=== PATIENT | male | born 1950 | race Caucasian/White ===

== ENCOUNTER 2018-05-24 20:47 | Inpatient (IN) | payer MEDICARE ==
--- NOTE | 2018-05-24 21:05 | ED Physician Chart ---
ED Chief Complaint/HPI - Patient Information Date Seen:: 05/24/18 Time Seen:: 20:55 Chief Complaint:: increased agitation History of Present Illness:: Patient has been exhibiting increased agitation at his extended care facility. The EMT patient is normally alert and oriented 1 only Historian:: EMS Review:: Transfer documents Reviewed ED Review of Systems - Review of Systems General/Constitutional: No fever, No chills Skin: No skin lesions Head: No headache Eyes: No loss of vision ENT: No earache Neck: No neck pain, No swelling Cardio Vascular: No chest pain Pulmonary: No SOB GI: No nausea, No vomiting, No diarrhea G/U: No dysuria Musculoskeletal: No bone or joint pain, No back pain, No muscle pain Endocrine: No polyuria, No polydipsia Psychiatric: Prior psych history Hematopoietic: No bruising Allergic/Immuno: No urticaria ED Past Medical History - Past Medical History Past Medical History: DM, Other (schizophrenia) Family History: Other (not available) Social History: Care Facility Surgical History: other (enucleation left eye) Psychiatricy History: Schizophrenia Family Medical History - Family Member Mother History Unknown: Yes ED Physical Exam - Physical Examination General/Constitutional: Well-developed, well-nourished, Alert, No distress Other Gen/Cons comments:: No verbal response Head: Atraumatic Other Head comments:: Left eye enucleation Skin: Nl inspection, No rash ENMT: External ears, nose nl, TM canals nl Neck: No nuchal rigidity Respiratory: Nl effort/Exclusion, Clear to Auscultation Other Cardio Vascular comments:: S1 and S2 faint; pulse regular GI: No tenderness/rebounding/guarding, No organomegaly, No hernia, Normal BS's Neuro/Psych: No focal deficits ED Labs/Radiology/EKG Results - Lab Results Results: Abnormal Lab Results 05/24/18 21:35 WBC 5.7 RBC 3.73 L Hgb 10.5 L Hct 32.6 L MCV 87.5 MCH 28.1 MCHC Differential 32.1 RDW 13.1 Plt Count 253 MPV 8.2 Neutrophils % 53.9 Lymphocytes % 36.7 Monocytes % 6.1 Eosinophils % 2.4 Basophils % 0.9 Abnormal Lab Results 05/24/18 05/24/18 21:35 21:35 WBC 5.7 RBC 3.73 L Hgb 10.5 L Hct 32.6 L MCV 87.5 MCH 28.1 MCHC Differential 32.1 RDW 13.1 Plt Count 253 MPV 8.2 Neutrophils % 53.9 Lymphocytes % 36.7 Monocytes % 6.1 Eosinophils % 2.4 Basophils % 0.9 Sodium 136 Potassium 4.5 Chloride 106 Carbon Dioxide 22.1 Anion Gap 12.4 BUN 21 Creatinine 1.3 Est GFR ( Amer) > 60.0 Est GFR (Non-Af Amer) 58.3 BUN/Creatinine Ratio 16.2 Glucose 103 Calcium 9.8 Total Bilirubin 0.3 AST 11 L ALT 9 Alkaline Phosphatase 78 Total Protein 6.5 Albumin 3.4 L Globulin 3.1 Albumin/Globulin Ratio 1.1 Triglycerides 131 Cholesterol 140 LDL Cholesterol Direct 84 HDL Cholesterol 36 - EKG Interpretations Rate & Rhythm: normal sinus rhythm with a rate of 58 [place]: normal axis ED Septic Shock - . Is Septic Shock (SBP<90, OR Lactate>4 mmol\L) present?: No ED Reassessment (Disposition) - Reassessment Reassessment Condition:: Unchanged - Diagnosis Diagnosis:: Anemia; agitation; schizophrenia; dementia; status post enucleation left eye - Patient Disposition Admitted to:: [facility] Condition at Disposition:: Stable, Unchanged
[2018-05-24 21:47] LABS: % BASOPHILS 0.9 % (0.0-2.0); % EOSINOPHILS 2.4 % (0.0-5.0); % LYMPHOCYTES 36.7 % (20.0-50.0); % MONOCYTES 6.1 % (2.0-10.0); % NEUTROPHILS 53.9 % (40.0-80.0); BASOPHILE ABSOLUTE 0.1 Th/cumm (0-0.2); EOSINOPHILE ABSOLUTE 0.1 Th/cmm (0.1-0.4); HEMATOCRIT 32.6 % (41.0-60); HEMOGLOBIN 10.5 gm/dL (12-16); LYMPHOCYTE ABSOLUTE 2.1 Th/cmm (1.5-3.0); MEAN CELL VOLUME 87.5 fl (80-99); MEAN CORPUSCULAR HEMOGLOBIN 28.1 pg (27.0-31.0); MEAN CORPUSCULAR HGB CONC 32.1 pg (28.0-36.0); MEAN PLATELET VOLUME 8.2 fl; MONOCYTE ABSOLUTE 0.3 Th/cmm (0.3-1.0); NEUTROPHILE ABSOLUTE 3.1 Th/cmm (1.8-8.0); PLATELET COUNT 253 Th/cmm (150-400); RED BLOOD COUNT 3.73 Mil/cmm (3.80-5.80); RED CELL DISTRIBUTION WIDTH 13.1 % (11.5-20.0); WHITE BLOOD COUNT 5.7 Th/cmm (4.8-10.8)
[2018-05-24 22:05] LABS: ALB/GLOB RATIO 1.1 (1.0-1.8); ALBUMIN 3.4 gm/dL (4.2-5.5); ALKALINE PHOSPHATASE 78 U/L (34-104); ANION GAP 12.4 (7.0-16.0); BILIRUBIN,TOTAL 0.3 mg/dL (0.3-1.0); BUN - UREA NITROGEN 21 mg/dL (7-25); CALCIUM SERUM 9.8 mg/dL (8.6-10.3); CARBON DIOXIDE 22.1 mEq/L (21.0-31.0); CHLORIDE 106 mEq/L (98-107); CHOLESTEROL 140 mg/dL (<200); CREATININE - SERUM 1.3 mg/dL (0.7-1.3); GFR AFRICAN-AMERICAN > 60.0 ml/min (>90); GFR NON AFRICAN-AMERICAN 58.3 ml/min; GLUCOSE 103 mg/dL (70-105); HDL -HIGH DENSITY LIPOPROTEIN 36 mg/dL (23-92); POTASSIUM SERUM 4.5 mEq/L (3.5-5.1); SGOT 11 U/L (13-39); SGPT/ALT 9 U/L (7-52); SODIUM SERUM 136 mEq/L (136-145); TOTAL PROTEIN,SERUM 6.5 gm/dL (6.0-8.3); TRIGLYCERIDES 131 mg/dL (<150)
[2018-05-24] MEDS ORDERED: Magnesium Hydroxide (MOM) 30 mL UDC PO PRN (22:45)
[2018-05-25 00:57] VITALS: BP 105/54
[2018-05-25 01:31] LABS: URINE SOURCE CLEAN C
[2018-05-25 01:34] LABS: URINE BILIRUBIN NEGATIVE (NEGATIVE); URINE BLOOD NEGATIVE (NEGATIVE); URINE GLUCOSE (UA) NEGATIVE (NEGATIVE); URINE KETONE NEGATIVE (NEGATIVE); URINE LEUKOCYTE ESTERASE NEGATIVE (NEGATIVE); URINE NITRATE NEGATIVE (NEGATIVE); URINE PROTEIN NEGATIVE (NEGATIVE); URINE UROBILINOGEN 0.2 E.U./dL (0.2 - 1.0)
[2018-05-25 01:40] LABS: URINE CLARITY CLEAR (CLEAR); URINE COLOR YELLOW
[2018-05-25 01:41] LABS: URINE MICROSCOPIC INDICATED? NO
[2018-05-25] MEDS: INSULIN ASPART SLIDING SCALE 100 UNITS/ML UNIT SUBQ SCH ×2 (08:00→11:30)
[2018-05-25] MEDS: INSULIN ASPART, RECOMBINANT 100 UNITS/ML SUBQ SCH ×3 (08:00→16:52)
[2018-05-25] MEDS ORDERED: Non-Formulary Item 1 EA (Glipizide [Glipizide] 10 MG) PO SCH (09:00)
[2018-05-25] MEDS ORDERED: Multivitamin w/ Minerals Tab PO SCH (09:00)
[2018-05-25] MEDS: Ferrous Sulfate 325 MG TAB PO SCH (09:46)
[2018-05-25] MEDS ORDERED: Magnesium Hydroxide (MOM) 30 mL UDC PO PRN (15:44)
--- NOTE | 2018-05-25 16:29 | History & Physical ---
ADMIT DATE: 05/25/2018 CHIEF COMPLAINT: Medical evaluation and clearance. HISTORY OF PRESENT ILLNESS: This is a 68-year-old male with history of diabetes, left eye blindness, dementia, hypertension, admitted from nursing facility secondary to above complaints. The patient denied any chest pain, shortness of breath. The patient is not a best historian. PAST MEDICAL HISTORY: As mentioned in history present illness. PAST SURGICAL HISTORY: Left eye surgery and ear surgery. ALLERGIES: No known drug allergies. MEDICATIONS: Cogentin, Colace, iron, sulfa, glipizide, lisinopril, ____. FAMILY HISTORY: Noncontributory. SOCIAL HISTORY: The patient is a shelter patient, requiring 24-hour total care. REVIEW OF SYSTEMS: This is limited due to the patient's current mental status state. We will try to obtain more detailed review of system at a later date by talking to family members and Estela the sister, . There is a daughter, Lena Muse, . We will also try to get information from nursing staff at [facility] at [phone] as well as from Dr. Hyatt. PHYSICAL EXAMINATION: VITAL SIGNS: Blood pressure 133/63, respirations 20, pulse 67. GENERAL: Elderly male, appears stated age ____. NECK: Supple. No mass. LUNGS: Equal breath sounds, otherwise clear to auscultation. HEART: Regular rate and rhythm without appreciable murmur. ABDOMEN: Soft, nontender. EXTREMITIES: No clubbing, cyanosis or edema. LABORATORY DATA: WBC 5, hemoglobin 10.5, platelets 253. Sodium 136, potassium 4.5, BUN 21, creatinine 1.3, albumin 3.4. UA is negative. ASSESSMENT AND PLAN: Anemia, diabetes, left eye blindness, dementia, hypertension, low albumin. We will continue the patient on daily insulin sliding scale. Continue ____ medication. We will monitor the patient with hematocrit. We will titrate antihypertensive medication. Continue with current care. Follow consult and recommendations. JOB# [id number]
[2018-05-25] MEDS: Benztropine 1 MG TAB PO SCH (20:56)
[2018-05-25] MEDS ORDERED: Non-Formulary Item 1 EA (Melatonin [Melatonin] 3 MG) PO SCH (21:00)
[2018-05-25] MEDS ORDERED: Thioridazine Hydrochloride 25 MG TAB PO SCH (21:00)
--- NOTE | 2018-05-26 03:50 | Psychiatric Evaluation ---
DATE OF SERVICE: 05/25/2018 IDENTIFYING DATA: The patient is a 68-year-old male, resident of [facility]. Information obtained by directly interviewing the patient as well as reviewing the admission papers and they are reliable. JUSTIFICATION FOR HOSPITALIZATION: The patient is admitted on voluntary basis in view of his acute agitation and psychosis. CHIEF COMPLAINT: "I am okay." HISTORY OF PRESENT ILLNESS: This is the first psychiatric hospitalization to [facility] for this 68-year-old who is reported to have been getting easily agitated and has been out of control. The patient has to be referred over here for further stabilization. At the time of the hospitalization, the patient has been on thioridazine 75 mg at bedtime and the patient is also reported to have been on lithium 150 mg at bedtime. The patient's insight and judgment at this time are noted to be impaired. Impulse control is noted to be poor. The patient is actively responding to internal stimuli. The patient is pacing most of the time on the unit. The patient is laughing and giggling and talking to self. Coping skills at the time of the evaluation are noted to be very poor. PAST PSYCHIATRIC HISTORY: Details are not known. MEDICAL HISTORY: Physical examination is requested to be done by Dr. Go. SUBSTANCE ABUSE HISTORY: None. STRENGTH AND ASSETS: The patient is motivated. MENTAL STATUS EXAMINATION: The patient is a 68-year-old, looking his stated age, superficially cooperative. Eye contact is poor. Mood is noted to be irritable. Affect is constricted. Insight and judgment at this time are noted to be very much impaired. Impulse control is noted to be poor. Coping skills are also noted to be very poor. The patient is not making much sense. The patient is laughing and giggling and is not making much sense at this time and the patient has been having acute mood swings. Attention span and concentration are noted to be very poor at this time. DIAGNOSTIC IMPRESSION: AXIS I: Schizoaffective disorder. AXIS II: None. AXIS III: As per Dr. Go. IMMEDIATE TREATMENT PLAN: The patient is going to be observed on inpatient unit, provided with supportive psychotherapy. The patient is going to be closely monitored and encouraged to verbalize the concerns rather than to act out. The patient is going to be discontinued off the thioridazine and the patient is going to be placed on ____ Dictation ends here JOB# [id number]
--- NOTE | 2018-05-26 03:52 | Psychiatric Evaluation ---
DATE OF SERVICE: 05/24/2018 IDENTIFYING DATA: The patient is a 68-year-old male, resident of the [facility]. Information obtained by directly interviewing the patient as well as reviewing the admission papers. JUSTIFICATION OF HOSPITALIZATION: The patient is admitted here on a voluntary basis in view of his acute psychosis and agitation. CHIEF COMPLAINT: "I am okay." HISTORY OF PRESENT ILLNESS: This is the first psychiatric hospitalization to [facility] for this patient who is reported to have been diagnosed to have bipolar disorder and is reported to have been out of control. The patient has been screaming and yelling and getting easily agitated and hence the patient has been referred over here for stabilization. At the time of the hospitalization, the patient has been on thioridazine 75 mg at bedtime and also has been receiving the lithium carbonate 150 mg at bedtime. Even with these medications, the patient has been out of control. I tried to interview the patient, the patient is laughing and giggling and pacing most of the time on the unit. Sleep and appetite prior to the hospitalization are reported to be poor. PAST PSYCHIATRIC HISTORY: Details are not known. MEDICAL HISTORY: Physical examination is requested to be done by Dr. Go. SUBSTANCE ABUSE HISTORY: None. PHYSICAL OR SEXUAL ABUSE HISTORY: None. LEGAL PROBLEMS: None at this time. STRENGTH AND ASSETS: The patient is motivated. MENTAL STATUS EXAMINATION: The patient is a 68-year-old, looking his stated age, superficially cooperative. Eye contact is poor. The patient is grossly psychotic, actively responding to internal stimuli. The patient has paranoid delusions, but denies any command hallucinations. Insight and judgment are very much impaired. Impulse control is very poor. The patient, however, is noted to be alert and aware that he is in the hospital. Attention span and concentration are noted to be poor. The patient has been having acute mood swings and mood is noted to be very labile. The patient's behavior is likely danger to others. DIAGNOSTIC IMPRESSION: AXIS I: Schizoaffective disorder, psychotic type. AXIS II: None. AXIS III: As per Dr. Go. IMMEDIATE TREATMENT PLAN: The patient is going to be observed on inpatient unit, provided with supportive psychotherapy. The thioridazine is going to be discontinued. The patient is going to be placed on the Seroquel, which is going to be given at 25 mg at bedtime, lithium is going to be continued and the lisinopril possibly is going to be changed because the patient is on the lithium. ESTIMATED LENGTH OF STAY: 5-7 days. DISCHARGE CRITERIA: When he no longer a threat to self or others and be able to cope up with the stress. JOB# [id number]
[2018-05-26] MEDS: INSULIN ASPART, RECOMBINANT 100 UNITS/ML SUBQ SCH ×3 (06:48→16:46)
[2018-05-26] MEDS: Ferrous Sulfate 325 MG TAB PO SCH (08:56)
--- NOTE | 2018-05-26 14:32 | Internal Medicine Prog Note ---
Internal Medicine Subjective - Subjective Patient seen and examined:: with staff, chart reviewed Patient is:: awake, verbal, interactive Per staff patient has:: no adverse event, poor appetite, tolerating meds Internal Medicine Objective - Results Result Diagrams: 05/24/18 21:35 05/24/18 21:35 Recent Labs: Laboratory Last Values WBC 5.7 Th/cmm (4.8-10.8) 05/24/18 21:35 RBC 3.73 Mil/cmm (3.80-5.80) L 05/24/18 21:35 Hgb 10.5 gm/dL (12-16) L 05/24/18 21:35 Hct 32.6 % (41.0-60) L 05/24/18 21:35 MCV 87.5 fl (80-99) 05/24/18 21:35 MCH 28.1 pg (27.0-31.0) 05/24/18 21:35 MCHC Differential 32.1 pg (28.0-36.0) 05/24/18 21:35 RDW 13.1 % (11.5-20.0) 05/24/18 21:35 Plt Count 253 Th/cmm (150-400) 05/24/18 21:35 MPV 8.2 fl 05/24/18 21:35 Neutrophils % 53.9 % (40.0-80.0) 05/24/18 21:35 Lymphocytes % 36.7 % (20.0-50.0) 05/24/18 21:35 Monocytes % 6.1 % (2.0-10.0) 05/24/18 21:35 Eosinophils % 2.4 % (0.0-5.0) 05/24/18 21:35 Basophils % 0.9 % (0.0-2.0) 05/24/18 21:35 Sodium 136 mEq/L (136-145) 05/24/18 21:35 Potassium 4.5 mEq/L (3.5-5.1) 05/24/18 21:35 Chloride 106 mEq/L (98-107) 05/24/18 21:35 Carbon Dioxide 22.1 mEq/L (21.0-31.0) 05/24/18 21:35 Anion Gap 12.4 (7.0-16.0) 05/24/18 21:35 BUN 21 mg/dL (7-25) 05/24/18 21:35 Creatinine 1.3 mg/dL (0.7-1.3) 05/24/18 21:35 Est GFR ( Amer) > 60.0 ml/min (>90) 05/24/18 21:35 Est GFR (Non-Af Amer) 58.3 ml/min 05/24/18 21:35 BUN/Creatinine Ratio 16.2 05/24/18 21:35 Glucose 103 mg/dL (70-105) 05/24/18 21:35 Calcium 9.8 mg/dL (8.6-10.3) 05/24/18 21:35 Total Bilirubin 0.3 mg/dL (0.3-1.0) 05/24/18 21:35 AST 11 U/L (13-39) L 05/24/18 21:35 ALT 9 U/L (7-52) 05/24/18 21:35 Alkaline Phosphatase 78 U/L (34-104) 05/24/18 21:35 Total Protein 6.5 gm/dL (6.0-8.3) 05/24/18 21:35 Albumin 3.4 gm/dL (4.2-5.5) L 05/24/18 21:35 Globulin 3.1 gm/dL 05/24/18 21:35 Albumin/Globulin Ratio 1.1 (1.0-1.8) 05/24/18 21:35 Triglycerides 131 mg/dL (<150) 05/24/18 21:35 Cholesterol 140 mg/dL (<200) 05/24/18 21:35 LDL Cholesterol Direct 84 mg/dL (75-193) 05/24/18 21:35 HDL Cholesterol 36 mg/dL (23-92) 05/24/18 21:35 TSH 0.10 uIU/ml (0.34-5.60) L 05/24/18 21:35 Urine Source CLEAN C 05/24/18 22:10 Urine Color YELLOW 05/24/18 22:10 Urine Clarity CLEAR (CLEAR) 05/24/18 22:10 Urine pH 7.0 (4.6 - 8.0) 05/24/18 22:10 Ur Specific [place] <= 1.005 (1.005-1.030) 05/24/18 22:10 Urine Protein NEGATIVE mg/dL (NEGATIVE) 05/24/18 22:10 Urine Glucose (UA) NEGATIVE mg/dL (NEGATIVE) 05/24/18 22:10 Urine Ketones NEGATIVE mg/dL (NEGATIVE) 05/24/18 22:10 Urine Blood NEGATIVE (NEGATIVE) 05/24/18 22:10 Urine Nitrate NEGATIVE (NEGATIVE) 05/24/18 22:10 Urine Bilirubin NEGATIVE (NEGATIVE) 05/24/18 22:10 Urine Urobilinogen 0.2 E.U./dL (0.2 - 1.0) 05/24/18 22:10 Ur Leukocyte Esterase NEGATIVE (NEGATIVE) 05/24/18 22:10 RPR NONREACTIVE (NONREACTIVE) 05/24/18 21:35 Crossmatch See Detail 05/24/18 21:35 - Physical Exam Vitals and I&O: Vital Signs Temp 96.1 F 05/26/18 05:48 Pulse 60 05/26/18 08:55 Resp 20 05/26/18 05:48 BP 99/52 05/26/18 08:55 Pulse Ox 99 05/26/18 05:48 Intake & Output 05/25/18 05/26/18 05/26/18 18:59 06:59 18:59 Intake Total 240 Balance 240 Intake: Oral 240 Other: # Voids 2 # Bowel Movements 1 Active Medications: Current Medications Acetaminophen (Tylenol) 650 mg PO Q4H PRN PRN Reason: Pain or Fever >101 Stop: 07/24/18 03:09 Benztropine Mesylate (Cogentin) 1 mg PO HS [facility] Stop: 07/24/18 20:59 Last Admin: 05/25/18 20:56 Dose: 1 mg Docusate Sodium (Colace) 100 mg PO BID [facility] Stop: 07/24/18 08:59 Last Admin: 05/26/18 08:56 Dose: 100 mg Donepezil HCl (Aricept) 5 mg PO HS [facility] Stop: 07/24/18 20:59 Last Admin: 05/25/18 20:56 Dose: 5 mg Ferrous Sulfate (Iron) 325 mg PO DAILY [facility] Stop: 07/24/18 08:59 Last Admin: 05/26/18 08:56 Dose: 325 mg Glipizide (Glucotrol) 10 mg PO BIDBRS [facility] Stop: 07/24/18 07:59 Last Admin: 05/26/18 08:56 Dose: 10 mg Insulin Aspart (Novolog) 0 units SUBQ AC [facility]; Protocol Stop: 07/24/18 07:29 Last Admin: 05/26/18 11:34 Dose: Not Given Lisinopril (Zestril) 5 mg PO DAILY [facility] Stop: 07/24/18 08:59 Last Admin: 05/26/18 08:55 Dose: 5 mg [place] Carbonate (Eskalith) 150 mg PO HS [facility]; Protocol Stop: 07/24/18 20:59 Last Admin: 05/25/18 20:56 Dose: 150 mg Lorazepam (Ativan) 0.5 mg PO Q4HR PRN; Protocol PRN Reason: Anxiety Stop: 06/23/18 22:44 Magnesium Hydroxide (Milk Of Magnesia) 30 ml PO HS PRN PRN Reason: Constipation Magnesium Hydroxide (Milk Of Magnesia) 30 ml PO DAILY PRN PRN Reason: Constipation Stop: 07/24/18 15:43 Quetiapine Fumarate (Seroquel) 25 mg PO HS [facility]; Protocol Stop: 07/24/18 20:59 Last Admin: 05/25/18 20:56 Dose: 25 mg Zolpidem Tartrate (Ambien) 5 mg PO HS PRN PRN Reason: Insomnia Stop: 07/23/18 22:44 Last Admin: 05/25/18 20:56 Dose: 5 mg General: demented HEENT: NC/AT, PERRLA Neck: Supple, No JVD Lungs: CTAB Cardiovascular: RRR, Normal S1, Normal S2 Abdomen: soft, non-tender, non-distended Extremities: excoriation Neurological: no change, disorganized Internal Medicine Assmt/Plan - Assessment Assessment: ASSESSMENT AND PLAN: Anemia, diabetes, left eye blindness, dementia, hypertension, low albumin. - Plan Plan: PLAN: We will continue the patient on daily insulin sliding scale. Continue _hypoglycemic___ medication. We will monitor the patient with low na diet We will titrate antihypertensive medication. Continue with current care. Follow consult and recommendations.
[2018-05-26] MEDS: Benztropine 1 MG TAB PO SCH (20:41)
--- NOTE | 2018-05-26 23:53 | Progress Notes ---
DATE: 05/26/2018 PSYCHIATRIC PROGRESS NOTE SUBJECTIVE: Staff was spoken to. The patient is interviewed. The patient's sister has been spoken to at length, sister has been mentioning that the patient has been doing fairly well on the [place] and she does not want that medication to be stopped and the patient was supposed to be tried on Risperdal that did not go well. The patient also has been having ____ kidney and the lithium is supposed to be taken off. The patient at this time is actively responding to internal stimuli, not making much sense. The patient is pacing most of the time. ASSESSMENT: The patient is still grossly psychotic. PLAN: To continue the patient with the supportive therapy. I encouraged the patient to verbalize the concerns rather than to act out. JOB# [id number]
[2018-05-27] MEDS: INSULIN ASPART, RECOMBINANT 100 UNITS/ML SUBQ SCH ×3 (06:40→17:04)
[2018-05-27] MEDS: Thioridazine Hydrochloride 25 MG TAB PO SCH ×2 (09:10→17:41)
[2018-05-27] MEDS: Ferrous Sulfate 325 MG TAB PO SCH (09:11)
--- NOTE | 2018-05-27 15:11 | Consultation ---
DATE OF CONSULTATION: 05/26/2018 REQUESTING PHYSICIAN: Roula Castellanos MD TYPE OF CONSULTATION: Psychology. HISTORY OF PRESENT ILLNESS: The patient is a 68-year-old male. The patient is a resident of [facility]. The following is by review of the medical record and by the patient's self-report. The patient is being admitted due to acute psychosis and agitation. Upon interview, the patient states that he thinks he is okay and does not need to be hospitalized. The staff at the patient's facility report that the patient's behavior has been out of control with screaming and yelling episodes. The staff reports that the patient had been getting easily agitated and was unredirectable. Therefore, the patient was admitted here for stabilization. The patient seems to be laughing inappropriately at the time of this clinical interview. The patient denied any suicidal ideation, plan or intention. PAST MEDICAL HISTORY: Please see history and physical by Dr. Go. PAST PSYCHIATRIC HISTORY: Records are unavailable, details are unknown. SUBSTANCE ABUSE HISTORY: The patient did not answer the questions about history of alcohol, tobacco or illicit drug use. PSYCHOSOCIAL HISTORY: The patient did not answer questions about occupational or educational history or catholic affiliation. The patient did not answer questions about history of physical or sexual abuse. The patient denied any current legal problems. The patient did not answer question about family members or family relationships or others involved in his care. MENTAL STATUS EXAMINATION: The patient appears to be his stated age. The patient's attitude is superficially cooperative. Eye contact is poor. Speech is loud and pressured. The patient appears to be responding to internal stimuli. There is evidence of paranoid delusions. The patient denied any auditory or visual hallucinations. The patient denied any suicidal ideation, plan or intention. The patient's behavior has been difficult to deescalate. Impulse control is impaired. Concentration is poor. The patient was unable to sustain focus and attention. The patient is experiencing mood swings and appears to be quite labile. The sensorium is alert and oriented to self and place only. The patient did not participate in the memory assessment. The patient did not participate in the interpretation of proverbs. Insight is impaired. Judgment is impaired. DIAGNOSTIC IMPRESSION: AXIS I: Schizoaffective disorder, bipolar type. AXIS II: Deferred. AXIS III: Per Dr. Donavan. TREATMENT PLAN: The patient has been seen by Dr. Castellanos for psychiatric evaluation and for the management of the patient's psychotropic medications. We will provide supportive psychotherapy to include reality orientation, differentiation and integration. We will provide de-escalation as well as limit setting. We will provide stress management for the patient to increase his frustration tolerance. We will encourage the patient to demonstrate emotional and self-regulation prior to his discharge. We will provide coping strategies for severe chronic mental illness. We will provide motivational enhancement for the patient to become compliant and stay compliant with all aspects of his care and treatment. The attending psychiatrist indicates that thioridazine is being discontinued and the patient is being placed on Seroquel. [place] is being continued, and is being reviewed. We will continue to provide supportive therapy throughout the patient's hospital stay. We will encourage the patient to also verbally contract for safety. Thank you, Dr. Castellanos for this consult and the opportunity to participate in this patient's care. [facility]# [id number] [email or web address]
--- NOTE | 2018-05-27 20:10 | Internal Medicine Prog Note ---
Internal Medicine Subjective - Subjective Patient seen and examined:: with staff, chart reviewed Patient is:: awake, verbal, interactive Per staff patient has:: no adverse event, poor appetite, tolerating meds Internal Medicine Objective - Results Result Diagrams: 05/24/18 21:35 05/24/18 21:35 Recent Labs: Laboratory Last Values WBC 5.7 Th/cmm (4.8-10.8) 05/24/18 21:35 RBC 3.73 Mil/cmm (3.80-5.80) L 05/24/18 21:35 Hgb 10.5 gm/dL (12-16) L 05/24/18 21:35 Hct 32.6 % (41.0-60) L 05/24/18 21:35 MCV 87.5 fl (80-99) 05/24/18 21:35 MCH 28.1 pg (27.0-31.0) 05/24/18 21:35 MCHC Differential 32.1 pg (28.0-36.0) 05/24/18 21:35 RDW 13.1 % (11.5-20.0) 05/24/18 21:35 Plt Count 253 Th/cmm (150-400) 05/24/18 21:35 MPV 8.2 fl 05/24/18 21:35 Neutrophils % 53.9 % (40.0-80.0) 05/24/18 21:35 Lymphocytes % 36.7 % (20.0-50.0) 05/24/18 21:35 Monocytes % 6.1 % (2.0-10.0) 05/24/18 21:35 Eosinophils % 2.4 % (0.0-5.0) 05/24/18 21:35 Basophils % 0.9 % (0.0-2.0) 05/24/18 21:35 Sodium 136 mEq/L (136-145) 05/24/18 21:35 Potassium 4.5 mEq/L (3.5-5.1) 05/24/18 21:35 Chloride 106 mEq/L (98-107) 05/24/18 21:35 Carbon Dioxide 22.1 mEq/L (21.0-31.0) 05/24/18 21:35 Anion Gap 12.4 (7.0-16.0) 05/24/18 21:35 BUN 21 mg/dL (7-25) 05/24/18 21:35 Creatinine 1.3 mg/dL (0.7-1.3) 05/24/18 21:35 Est GFR ( Amer) > 60.0 ml/min (>90) 05/24/18 21:35 Est GFR (Non-Af Amer) 58.3 ml/min 05/24/18 21:35 BUN/Creatinine Ratio 16.2 05/24/18 21:35 Glucose 103 mg/dL (70-105) 05/24/18 21:35 POC Glucose 116 MG/DL (70 - 105) H 05/27/18 16:49 Calcium 9.8 mg/dL (8.6-10.3) 05/24/18 21:35 Total Bilirubin 0.3 mg/dL (0.3-1.0) 05/24/18 21:35 AST 11 U/L (13-39) L 05/24/18 21:35 ALT 9 U/L (7-52) 05/24/18 21:35 Alkaline Phosphatase 78 U/L (34-104) 05/24/18 21:35 Total Protein 6.5 gm/dL (6.0-8.3) 05/24/18 21:35 Albumin 3.4 gm/dL (4.2-5.5) L 05/24/18 21:35 Globulin 3.1 gm/dL 05/24/18 21:35 Albumin/Globulin Ratio 1.1 (1.0-1.8) 05/24/18 21:35 Triglycerides 131 mg/dL (<150) 05/24/18 21:35 Cholesterol 140 mg/dL (<200) 05/24/18 21:35 LDL Cholesterol Direct 84 mg/dL (75-193) 05/24/18 21:35 HDL Cholesterol 36 mg/dL (23-92) 05/24/18 21:35 TSH 0.10 uIU/ml (0.34-5.60) L 05/24/18 21:35 Urine Source CLEAN C 05/24/18 22:10 Urine Color YELLOW 05/24/18 22:10 Urine Clarity CLEAR (CLEAR) 05/24/18 22:10 Urine pH 7.0 (4.6 - 8.0) 05/24/18 22:10 Ur Specific [place] <= 1.005 (1.005-1.030) 05/24/18 22:10 Urine Protein NEGATIVE mg/dL (NEGATIVE) 05/24/18 22:10 Urine Glucose (UA) NEGATIVE mg/dL (NEGATIVE) 05/24/18 22:10 Urine Ketones NEGATIVE mg/dL (NEGATIVE) 05/24/18 22:10 Urine Blood NEGATIVE (NEGATIVE) 05/24/18 22:10 Urine Nitrate NEGATIVE (NEGATIVE) 05/24/18 22:10 Urine Bilirubin NEGATIVE (NEGATIVE) 05/24/18 22:10 Urine Urobilinogen 0.2 E.U./dL (0.2 - 1.0) 05/24/18 22:10 Ur Leukocyte Esterase NEGATIVE (NEGATIVE) 05/24/18 22:10 RPR NONREACTIVE (NONREACTIVE) 05/24/18 21:35 Crossmatch See Detail 05/24/18 21:35 - Physical Exam Vitals and I&O: Vital Signs Temp 97 F 05/27/18 15:17 Pulse 68 05/27/18 15:17 Resp 18 05/27/18 15:17 BP 128/67 05/27/18 15:17 Pulse Ox 99 05/27/18 15:17 Intake & Output 05/27/18 05/27/18 05/28/18 06:59 18:59 06:59 Intake Total 120 Balance 120 Intake: Oral 120 Other: # Voids 3 # Bowel Movements 0 Active Medications: Current Medications Acetaminophen (Tylenol) 650 mg PO Q4H PRN PRN Reason: Pain or Fever >101 Stop: 07/24/18 03:09 Benztropine Mesylate (Cogentin) 1 mg PO [facility] Stop: 07/24/18 20:59 Last Admin: 05/26/18 20:41 Dose: 1 mg Divalproex Sodium (Depakote Dr) 125 mg PO Q12HR [facility]; Protocol Stop: 07/25/18 20:59 Last Admin: 05/27/18 09:10 Dose: 125 mg Docusate Sodium (Colace) 100 mg PO BID [facility] Stop: 07/24/18 08:59 Last Admin: 05/27/18 17:42 Dose: Not Given Donepezil HCl (Aricept) 5 mg PO [facility] Stop: 07/24/18 20:59 Last Admin: 05/26/18 20:41 Dose: 5 mg Ferrous Sulfate (Iron) 325 mg PO DAILY [facility] Stop: 07/24/18 08:59 Last Admin: 05/27/18 09:11 Dose: 325 mg Glipizide (Glucotrol) 10 mg PO BIDBRS [facility] Stop: 07/24/18 07:59 Last Admin: 05/27/18 17:42 Dose: 10 mg Insulin Aspart (Novolog) 0 units SUBQ AC [facility]; Protocol Stop: 07/24/18 07:29 Last Admin: 05/27/18 17:04 Dose: Not Given Lisinopril (Zestril) 5 mg PO DAILY [facility] Stop: 07/24/18 08:59 Last Admin: 05/27/18 09:11 Dose: 5 mg Lorazepam (Ativan) 0.5 mg PO Q4HR PRN; Protocol PRN Reason: Anxiety Stop: 06/23/18 22:44 Last Admin: 05/27/18 09:10 Dose: 0.5 mg Magnesium Hydroxide (Milk Of Magnesia) 30 ml PO HS PRN PRN Reason: Constipation Magnesium Hydroxide (Milk Of Magnesia) 30 ml PO DAILY PRN PRN Reason: Constipation Stop: 07/24/18 15:43 Mupirocin (Bactroban Oint) 1 appl NS BID [facility] Stop: 06/01/18 09:01 Last Admin: 05/27/18 17:42 Dose: Not Given Quetiapine Fumarate (Seroquel) 25 mg PO HS [facility]; Protocol Stop: 07/24/18 20:59 Last Admin: 05/26/18 20:42 Dose: 25 mg Thioridazine HCl (Mellaril) 50 mg PO BID [facility]; Protocol Stop: 07/26/18 08:59 Last Admin: 05/27/18 17:41 Dose: 50 mg Zolpidem Tartrate (Ambien) 5 mg PO HS PRN PRN Reason: Insomnia Stop: 07/23/18 22:44 Last Admin: 05/26/18 20:42 Dose: 5 mg General: demented HEENT: NC/AT, PERRLA Neck: Supple, No JVD Lungs: CTAB Cardiovascular: RRR, Normal S1, Normal S2 Abdomen: soft, non-tender, non-distended Extremities: excoriation Neurological: no change, disorganized Internal Medicine Assmt/Plan - Assessment Assessment: ASSESSMENT AND PLAN: Anemia, diabetes, left eye blindness, dementia, hypertension, low albumin. - Plan Plan: PLAN: We will continue the patient on daily insulin sliding scale. Continue _hypoglycemic___ medication. We will monitor the patient with low na diet We will titrate antihypertensive medication. Continue with current care. Follow consult and recommendations. Nutritional Asmnt/Malnutr-PDOC - Dietary Evaluation Malnutrition Findings (Please click <Entered> for more info): Nutritional Asmnt/Malnutrition Start: 05/27/18 12: 47 Text: Status: Complete Freq: Protocol: Document 05/27/18 12:48 [email or web address] (Rec: 05/27/18 12:57 [email or web address]) Nutritional Asmnt/Malnutrition Patient General Information Nutritional Screening Moderate Risk Diagnosis psychosis nos Pertinent Medical Hx/Surgical Hx DM, left eye blindness, dementia, HTN, left eye & ear surgery Subjective Information Pt was seen sleeping in bed at time of visit. PO intake is 75-100% per EMR. Current Diet Order/ Nutrition Support CCHO 60gm Pertinent Medications colace, iron, glucatrol, novolog, seroquel, ambien Pertinent Labs 05/27 POC 85 05/26 POC 146 05/24 glucose 103, alb 3.4 Nutritional Hx/Data Height 1.75 m Height (Calculated Centimeters) 175.3 Current Weight (lbs) 79.832 kg Weight (Calculated Kilograms) 79.8 Weight (Calculated Grams) 43412.3 [place] Body Weight 160 Body Mass Index (BMI) 25.9 Weight Status Overweight GI Symptoms GI Symptoms None Last BM 05/26 Difficult in: None Food Allergies No Skin Integrity/Comment: intact, violeta 21 Current %PO Good (75-100%) Estimated Nutritional Goals BEE in Kcals: Using Current wt Calories/Kcals/Kg 23-27 Kcals Calculated 2007-9188 Protein: Using Current wt Protein g/k.8-1 Protein Calculated 64-80 Fluid: ml 0542-1067 (1ml/kcal) Nutritional Problem No current Nutrition Prob Problem N/A 1. Problem Problem altered nutrition related labs Etiology hyperglycemia Signs/Symptoms: POC 85-146 Malnutrition Alert Is there a minimum of two criteria No selected? Query Text:Check all the applicable criteria. A minimum of two criteria are recommended for diagnosis of either severe or non-severe malnutrition. Malnutrition Related to Morbid Obesity Malnutrition related to morbid obesity No Intervention/Recommendation Comments 1. Continue with [facility] 60gm diet as ordered. 2. MD to monitor glucose labs. 3. Monitor PO intake, wt, labs and skin integrity 4. F/U as low risk in 7 days Expected Outcomes/Goals Expected Outcomes/Goals Goal: PO intake to meet at least 75% of nutritional needs and improved labs. Reviewed by Tiff Davila RD
[2018-05-27] MEDS: Benztropine 1 MG TAB PO SCH (20:44)
--- NOTE | 2018-05-28 05:29 | Progress Notes ---
DATE: 05/27/2018 PSYCHIATRIC PROGRESS NOTE SUBJECTIVE: Staff was spoken to. The patient is interviewed. Mood is noted to be irritable. Affect is constricted. The patient has been laughing, giggling, and pacing most of the time. Insight and judgment are noted to be still impaired. Impulse control is noted to be poor. No side effects to the medications are noted. The patient's family has been spoken extensively yesterday. ASSESSMENT: The patient is still psychotic and impulsive. PLAN: To continue the patient with the supportive therapy and followup. JOB# [id number]
[2018-05-28] MEDS: INSULIN ASPART, RECOMBINANT 100 UNITS/ML SUBQ SCH ×3 (06:38→17:27)
[2018-05-28] MEDS: Thioridazine Hydrochloride 25 MG TAB PO SCH ×2 (08:47→16:54)
[2018-05-28] MEDS: Ferrous Sulfate 325 MG TAB PO SCH (08:49)
--- NOTE | 2018-05-28 12:49 | Internal Medicine Prog Note ---
Internal Medicine Subjective - Subjective Patient seen and examined:: with staff, chart reviewed Patient is:: awake, verbal, interactive Per staff patient has:: no adverse event, poor appetite, tolerating meds Internal Medicine Objective - Results Result Diagrams: 05/24/18 21:35 05/24/18 21:35 Recent Labs: Laboratory Last Values WBC 5.7 Th/cmm (4.8-10.8) 05/24/18 21:35 RBC 3.73 Mil/cmm (3.80-5.80) L 05/24/18 21:35 Hgb 10.5 gm/dL (12-16) L 05/24/18 21:35 Hct 32.6 % (41.0-60) L 05/24/18 21:35 MCV 87.5 fl (80-99) 05/24/18 21:35 MCH 28.1 pg (27.0-31.0) 05/24/18 21:35 MCHC Differential 32.1 pg (28.0-36.0) 05/24/18 21:35 RDW 13.1 % (11.5-20.0) 05/24/18 21:35 Plt Count 253 Th/cmm (150-400) 05/24/18 21:35 MPV 8.2 fl 05/24/18 21:35 Neutrophils % 53.9 % (40.0-80.0) 05/24/18 21:35 Lymphocytes % 36.7 % (20.0-50.0) 05/24/18 21:35 Monocytes % 6.1 % (2.0-10.0) 05/24/18 21:35 Eosinophils % 2.4 % (0.0-5.0) 05/24/18 21:35 Basophils % 0.9 % (0.0-2.0) 05/24/18 21:35 Sodium 136 mEq/L (136-145) 05/24/18 21:35 Potassium 4.5 mEq/L (3.5-5.1) 05/24/18 21:35 Chloride 106 mEq/L (98-107) 05/24/18 21:35 Carbon Dioxide 22.1 mEq/L (21.0-31.0) 05/24/18 21:35 Anion Gap 12.4 (7.0-16.0) 05/24/18 21:35 BUN 21 mg/dL (7-25) 05/24/18 21:35 Creatinine 1.3 mg/dL (0.7-1.3) 05/24/18 21:35 Est GFR ( Amer) > 60.0 ml/min (>90) 05/24/18 21:35 Est GFR (Non-Af Amer) 58.3 ml/min 05/24/18 21:35 BUN/Creatinine Ratio 16.2 05/24/18 21:35 Glucose 103 mg/dL (70-105) 05/24/18 21:35 POC Glucose 139 MG/DL (70 - 105) H 05/28/18 11:44 Calcium 9.8 mg/dL (8.6-10.3) 05/24/18 21:35 Total Bilirubin 0.3 mg/dL (0.3-1.0) 05/24/18 21:35 AST 11 U/L (13-39) L 05/24/18 21:35 ALT 9 U/L (7-52) 05/24/18 21:35 Alkaline Phosphatase 78 U/L (34-104) 05/24/18 21:35 Total Protein 6.5 gm/dL (6.0-8.3) 05/24/18 21:35 Albumin 3.4 gm/dL (4.2-5.5) L 05/24/18 21:35 Globulin 3.1 gm/dL 05/24/18 21:35 Albumin/Globulin Ratio 1.1 (1.0-1.8) 05/24/18 21:35 Triglycerides 131 mg/dL (<150) 05/24/18 21:35 Cholesterol 140 mg/dL (<200) 05/24/18 21:35 LDL Cholesterol Direct 84 mg/dL (75-193) 05/24/18 21:35 HDL Cholesterol 36 mg/dL (23-92) 05/24/18 21:35 TSH 0.10 uIU/ml (0.34-5.60) L 05/24/18 21:35 Urine Source CLEAN C 05/24/18 22:10 Urine Color YELLOW 05/24/18 22:10 Urine Clarity CLEAR (CLEAR) 05/24/18 22:10 Urine pH 7.0 (4.6 - 8.0) 05/24/18 22:10 Ur Specific [place] <= 1.005 (1.005-1.030) 05/24/18 22:10 Urine Protein NEGATIVE mg/dL (NEGATIVE) 05/24/18 22:10 Urine Glucose (UA) NEGATIVE mg/dL (NEGATIVE) 05/24/18 22:10 Urine Ketones NEGATIVE mg/dL (NEGATIVE) 05/24/18 22:10 Urine Blood NEGATIVE (NEGATIVE) 05/24/18 22:10 Urine Nitrate NEGATIVE (NEGATIVE) 05/24/18 22:10 Urine Bilirubin NEGATIVE (NEGATIVE) 05/24/18 22:10 Urine Urobilinogen 0.2 E.U./dL (0.2 - 1.0) 05/24/18 22:10 Ur Leukocyte Esterase NEGATIVE (NEGATIVE) 05/24/18 22:10 RPR NONREACTIVE (NONREACTIVE) 05/24/18 21:35 Crossmatch See Detail 05/24/18 21:35 - Physical Exam Vitals and I&O: Vital Signs Temp 98 F 05/28/18 06:15 Pulse 68 05/28/18 08:48 Resp 18 05/28/18 06:15 BP 116/79 05/28/18 08:48 Pulse Ox 96 05/28/18 06:15 Intake & Output 05/27/18 05/28/18 05/28/18 18:59 06:59 18:59 Intake Total 480 Balance 480 Intake: Oral 480 Other: # Voids 1 Active Medications: Current Medications Acetaminophen (Tylenol) 650 mg PO Q4H PRN PRN Reason: Pain or Fever >101 Stop: 07/24/18 03:09 Benztropine Mesylate (Cogentin) 1 mg PO [facility] Stop: 07/24/18 20:59 Last Admin: 05/27/18 20:44 Dose: 1 mg Divalproex Sodium (Depakote Dr) 125 mg PO Q12HR [facility]; Protocol Stop: 07/25/18 20:59 Last Admin: 05/28/18 08:49 Dose: 125 mg Docusate Sodium (Colace) 100 mg PO BID [facility] Stop: 07/24/18 08:59 Last Admin: 05/28/18 08:49 Dose: 100 mg Donepezil HCl (Aricept) 5 mg PO HS [facility] Stop: 07/24/18 20:59 Last Admin: 05/27/18 20:44 Dose: 5 mg Ferrous Sulfate (Iron) 325 mg PO DAILY [facility] Stop: 07/24/18 08:59 Last Admin: 05/28/18 08:49 Dose: 325 mg Glipizide (Glucotrol) 10 mg PO BIDBRS [facility] Stop: 07/24/18 07:59 Last Admin: 05/28/18 08:49 Dose: 10 mg Insulin Aspart (Novolog) 0 units SUBQ AC [facility]; Protocol Stop: 07/24/18 07:29 Last Admin: 05/28/18 11:46 Dose: Not Given Lisinopril (Zestril) 5 mg PO DAILY [facility] Stop: 07/24/18 08:59 Last Admin: 05/28/18 08:48 Dose: 5 mg Lorazepam (Ativan) 0.5 mg PO Q4HR PRN; Protocol PRN Reason: Anxiety Stop: 06/23/18 22:44 Last Admin: 05/27/18 09:10 Dose: 0.5 mg Magnesium Hydroxide (Milk Of Magnesia) 30 ml PO HS PRN PRN Reason: Constipation Magnesium Hydroxide (Milk Of Magnesia) 30 ml PO DAILY PRN PRN Reason: Constipation Stop: 07/24/18 15:43 Mupirocin (Bactroban Oint) 1 appl NS BID [facility] Stop: 06/01/18 09:01 Last Admin: 05/28/18 08:49 Dose: 1 appl Quetiapine Fumarate (Seroquel) 25 mg PO HS [facility]; Protocol Stop: 07/24/18 20:59 Last Admin: 05/27/18 20:44 Dose: 25 mg Thioridazine HCl (Mellaril) 50 mg PO BID [facility]; Protocol Stop: 07/26/18 08:59 Last Admin: 05/28/18 08:47 Dose: 50 mg Zolpidem Tartrate (Ambien) 5 mg PO HS PRN PRN Reason: Insomnia Stop: 07/23/18 22:44 Last Admin: 05/27/18 20:46 Dose: 5 mg General: demented HEENT: NC/AT, PERRLA Neck: Supple, No JVD Lungs: CTAB Cardiovascular: RRR, Normal S1, Normal S2 Abdomen: soft, non-tender, non-distended Extremities: excoriation Neurological: no change, disorganized Internal Medicine Assmt/Plan - Assessment Assessment: ASSESSMENT AND PLAN: Anemia, diabetes, left eye blindness, dementia, hypertension, low albumin. - Plan Plan: PLAN: We will continue the patient on daily insulin sliding scale. Continue _hypoglycemic___ medication. We will monitor the patient with low na diet We will titrate antihypertensive medication. Continue with current care. Follow consult and recommendations. Nutritional Asmnt/Malnutr-PDOC - Dietary Evaluation Malnutrition Findings (Please click <Entered> for more info): Nutritional Asmnt/Malnutrition Start: 05/27/18 12: 47 Text: Status: Complete Freq: Protocol: Document 05/27/18 12:48 [email or web address] (Rec: 05/27/18 12:57 [email or web address]) Nutritional Asmnt/Malnutrition Patient General Information Nutritional Screening Moderate Risk Diagnosis psychosis nos Pertinent Medical Hx/Surgical Hx DM, left eye blindness, dementia, HTN, left eye & ear surgery Subjective Information Pt was seen sleeping in bed at time of visit. PO intake is 75-100% per EMR. Current Diet Order/ Nutrition Support CCHO 60gm Pertinent Medications colace, iron, glucatrol, novolog, seroquel, ambien Pertinent Labs 05/27 POC 85 05/26 POC 146 05/24 glucose 103, alb 3.4 Nutritional Hx/Data Height 1.75 m Height (Calculated Centimeters) 175.3 Current Weight (lbs) 79.832 kg Weight (Calculated Kilograms) 79.8 Weight (Calculated Grams) 26104.3 [place] Body Weight 160 Body Mass Index (BMI) 25.9 Weight Status Overweight GI Symptoms GI Symptoms None Last BM 05/26 Difficult in: None Food Allergies No Skin Integrity/Comment: intact, violeta 21 Current %PO Good (75-100%) Estimated Nutritional Goals BEE in Kcals: Using Current wt Calories/Kcals/Kg 23-27 Kcals Calculated 5027-8138 Protein: Using Current wt Protein g/k.8-1 Protein Calculated 64-80 Fluid: ml 8918-9634 (1ml/kcal) Nutritional Problem No current Nutrition Prob Problem N/A 1. Problem Problem altered nutrition related labs Etiology hyperglycemia Signs/Symptoms: POC 85-146 Malnutrition Alert Is there a minimum of two criteria No selected? Query Text:Check all the applicable criteria. A minimum of two criteria are recommended for diagnosis of either severe or non-severe malnutrition. Malnutrition Related to Morbid Obesity Malnutrition related to morbid obesity No Intervention/Recommendation Comments 1. Continue with [facility] 60gm diet as ordered. 2. MD to monitor glucose labs. 3. Monitor PO intake, wt, labs and skin integrity 4. F/U as low risk in 7 days Expected Outcomes/Goals Expected Outcomes/Goals Goal: PO intake to meet at least 75% of nutritional needs and improved labs. Reviewed by Tiff Davila RD
[2018-05-28] MEDS: Benztropine 1 MG TAB PO SCH (21:38)
--- NOTE | 2018-05-29 01:18 | Progress Notes ---
DATE: 05/28/2018 PSYCHIATRIC PROGRESS NOTE SUBJECTIVE: Staff was spoken to. The patient is interviewed. Mood is noted to be irritable. Affect is constricted. Insight and judgment at this time are noted to be still impaired. Impulse control is noted to be limited. Coping skills are noted to be limited. The patient has been having difficult time to cope with the stress. The patient is pacing most of the time on the unit. No side effects to the medications are noted. ASSESSMENT: The patient is still grossly psychotic and impulsive. PLAN: To continue the patient with the supportive therapy and continue the patient with Mellaril, which is being given at 50 mg twice a day. The patient has also been placed on 25 mg of the Seroquel at nighttime and I am planning to increase the dose on the Seroquel to 50 mg in view of his psychosis. The patient is going to be followed up with the supportive therapy. The patient is not ready to be discharged to a lower level of care yet. Plan to continue the patient with the supportive therapy and followup. JOB# [id number]
[2018-05-29] MEDS: INSULIN ASPART, RECOMBINANT 100 UNITS/ML SUBQ SCH ×3 (06:34→16:38)
[2018-05-29] MEDS: Ferrous Sulfate 325 MG TAB PO SCH (08:41)
[2018-05-29] MEDS: Thioridazine Hydrochloride 25 MG TAB PO SCH ×2 (08:42→17:15)
--- NOTE | 2018-05-29 09:35 | Internal Medicine Prog Note ---
Internal Medicine Subjective - Subjective Patient seen and examined:: with staff, chart reviewed Patient is:: awake, verbal, interactive Per staff patient has:: no adverse event, poor appetite, tolerating meds Internal Medicine Objective - Results Result Diagrams: 05/24/18 21:35 05/24/18 21:35 Recent Labs: Laboratory Last Values WBC 5.7 Th/cmm (4.8-10.8) 05/24/18 21:35 RBC 3.73 Mil/cmm (3.80-5.80) L 05/24/18 21:35 Hgb 10.5 gm/dL (12-16) L 05/24/18 21:35 Hct 32.6 % (41.0-60) L 05/24/18 21:35 MCV 87.5 fl (80-99) 05/24/18 21:35 MCH 28.1 pg (27.0-31.0) 05/24/18 21:35 MCHC Differential 32.1 pg (28.0-36.0) 05/24/18 21:35 RDW 13.1 % (11.5-20.0) 05/24/18 21:35 Plt Count 253 Th/cmm (150-400) 05/24/18 21:35 MPV 8.2 fl 05/24/18 21:35 Neutrophils % 53.9 % (40.0-80.0) 05/24/18 21:35 Lymphocytes % 36.7 % (20.0-50.0) 05/24/18 21:35 Monocytes % 6.1 % (2.0-10.0) 05/24/18 21:35 Eosinophils % 2.4 % (0.0-5.0) 05/24/18 21:35 Basophils % 0.9 % (0.0-2.0) 05/24/18 21:35 Sodium 136 mEq/L (136-145) 05/24/18 21:35 Potassium 4.5 mEq/L (3.5-5.1) 05/24/18 21:35 Chloride 106 mEq/L (98-107) 05/24/18 21:35 Carbon Dioxide 22.1 mEq/L (21.0-31.0) 05/24/18 21:35 Anion Gap 12.4 (7.0-16.0) 05/24/18 21:35 BUN 21 mg/dL (7-25) 05/24/18 21:35 Creatinine 1.3 mg/dL (0.7-1.3) 05/24/18 21:35 Est GFR ( Amer) > 60.0 ml/min (>90) 05/24/18 21:35 Est GFR (Non-Af Amer) 58.3 ml/min 05/24/18 21:35 BUN/Creatinine Ratio 16.2 05/24/18 21:35 Glucose 103 mg/dL (70-105) 05/24/18 21:35 POC Glucose 117 MG/DL (70 - 105) H 05/29/18 06:17 Calcium 9.8 mg/dL (8.6-10.3) 05/24/18 21:35 Total Bilirubin 0.3 mg/dL (0.3-1.0) 05/24/18 21:35 AST 11 U/L (13-39) L 05/24/18 21:35 ALT 9 U/L (7-52) 05/24/18 21:35 Alkaline Phosphatase 78 U/L (34-104) 05/24/18 21:35 Total Protein 6.5 gm/dL (6.0-8.3) 05/24/18 21:35 Albumin 3.4 gm/dL (4.2-5.5) L 05/24/18 21:35 Globulin 3.1 gm/dL 05/24/18 21:35 Albumin/Globulin Ratio 1.1 (1.0-1.8) 05/24/18 21:35 Triglycerides 131 mg/dL (<150) 05/24/18 21:35 Cholesterol 140 mg/dL (<200) 05/24/18 21:35 LDL Cholesterol Direct 84 mg/dL (75-193) 05/24/18 21:35 HDL Cholesterol 36 mg/dL (23-92) 05/24/18 21:35 TSH 0.10 uIU/ml (0.34-5.60) L 05/24/18 21:35 Urine Source CLEAN C 05/24/18 22:10 Urine Color YELLOW 05/24/18 22:10 Urine Clarity CLEAR (CLEAR) 05/24/18 22:10 Urine pH 7.0 (4.6 - 8.0) 05/24/18 22:10 Ur Specific [place] <= 1.005 (1.005-1.030) 05/24/18 22:10 Urine Protein NEGATIVE mg/dL (NEGATIVE) 05/24/18 22:10 Urine Glucose (UA) NEGATIVE mg/dL (NEGATIVE) 05/24/18 22:10 Urine Ketones NEGATIVE mg/dL (NEGATIVE) 05/24/18 22:10 Urine Blood NEGATIVE (NEGATIVE) 05/24/18 22:10 Urine Nitrate NEGATIVE (NEGATIVE) 05/24/18 22:10 Urine Bilirubin NEGATIVE (NEGATIVE) 05/24/18 22:10 Urine Urobilinogen 0.2 E.U./dL (0.2 - 1.0) 05/24/18 22:10 Ur Leukocyte Esterase NEGATIVE (NEGATIVE) 05/24/18 22:10 RPR NONREACTIVE (NONREACTIVE) 05/24/18 21:35 Crossmatch See Detail 05/24/18 21:35 - Physical Exam Vitals and I&O: Vital Signs Temp 97.0 F 05/29/18 07:05 Pulse 70 05/29/18 07:05 Resp 18 05/29/18 07:05 BP 98/54 05/29/18 08:43 Pulse Ox 96 05/29/18 07:05 Intake & Output 05/28/18 05/29/18 05/29/18 18:59 06:59 18:59 Intake Total 1200 Balance 1200 Intake: Oral 1200 Other: # Voids 4 # Bowel Movements 1 Active Medications: Current Medications Acetaminophen (Tylenol) 650 mg PO Q4H PRN PRN Reason: Pain or Fever >101 Stop: 07/24/18 03:09 Benztropine Mesylate (Cogentin) 1 mg PO HS [facility] Stop: 07/24/18 20:59 Last Admin: 05/28/18 21:38 Dose: 1 mg Divalproex Sodium (Depakote Dr) 125 mg PO Q12HR [facility]; Protocol Stop: 07/25/18 20:59 Last Admin: 05/29/18 08:41 Dose: 125 mg Docusate Sodium (Colace) 100 mg PO BID [facility] Stop: 07/24/18 08:59 Last Admin: 05/29/18 08:41 Dose: 100 mg Donepezil HCl (Aricept) 5 mg PO HS [facility] Stop: 07/24/18 20:59 Last Admin: 05/28/18 21:38 Dose: 5 mg Ferrous Sulfate (Iron) 325 mg PO DAILY [facility] Stop: 07/24/18 08:59 Last Admin: 05/29/18 08:41 Dose: 325 mg Glipizide (Glucotrol) 10 mg PO BIDBRS [facility] Stop: 07/24/18 07:59 Last Admin: 05/29/18 08:42 Dose: 10 mg Insulin Aspart (Novolog) 0 units SUBQ AC [facility]; Protocol Stop: 07/24/18 07:29 Last Admin: 05/29/18 06:34 Dose: Not Given Lisinopril (Zestril) 5 mg PO DAILY [facility] Stop: 07/24/18 08:59 Last Admin: 05/29/18 08:43 Dose: Not Given Lorazepam (Ativan) 0.5 mg PO Q4HR PRN; Protocol PRN Reason: Anxiety Stop: 06/23/18 22:44 Last Admin: 05/27/18 09:10 Dose: 0.5 mg Magnesium Hydroxide (Milk Of Magnesia) 30 ml PO HS PRN PRN Reason: Constipation Magnesium Hydroxide (Milk Of Magnesia) 30 ml PO DAILY PRN PRN Reason: Constipation Stop: 07/24/18 15:43 Mupirocin (Bactroban Oint) 1 appl NS BID [facility] Stop: 06/01/18 09:01 Last Admin: 05/29/18 08:49 Dose: 1 appl Quetiapine Fumarate (Seroquel) 50 mg PO HS [facility]; Protocol Stop: 07/27/18 20:59 Last Admin: 05/28/18 21:36 Dose: 50 mg Thioridazine HCl (Mellaril) 50 mg PO BID [facility]; Protocol Stop: 07/26/18 08:59 Last Admin: 05/29/18 08:42 Dose: 50 mg Zolpidem Tartrate (Ambien) 5 mg PO HS PRN PRN Reason: Insomnia Stop: 07/23/18 22:44 Last Admin: 05/27/18 20:46 Dose: 5 mg General: demented HEENT: NC/AT, PERRLA Neck: Supple, No JVD Lungs: CTAB Cardiovascular: RRR, Normal S1, Normal S2 Abdomen: soft, non-tender, non-distended Extremities: excoriation Neurological: no change, disorganized Internal Medicine Assmt/Plan - Assessment Assessment: ASSESSMENT AND PLAN: Anemia, diabetes, left eye blindness, dementia, hypertension, low albumin. - Plan Plan: PLAN: We will continue the patient on daily insulin sliding scale. Continue _hypoglycemic___ medication. We will monitor the patient with low na diet We will titrate antihypertensive medication. Continue with current care. Follow consult and recommendations. Nutritional Asmnt/Malnutr-PDOC - Dietary Evaluation Malnutrition Findings (Please click <Entered> for more info): Nutritional Asmnt/Malnutrition Start: 05/27/18 12: 47 Text: Status: Complete Freq: Protocol: Document 05/27/18 12:48 [email or web address] (Rec: 05/27/18 12:57 [email or web address]) Nutritional Asmnt/Malnutrition Patient General Information Nutritional Screening Moderate Risk Diagnosis psychosis nos Pertinent Medical Hx/Surgical Hx DM, left eye blindness, dementia, HTN, left eye & ear surgery Subjective Information Pt was seen sleeping in bed at time of visit. PO intake is 75-100% per EMR. Current Diet Order/ Nutrition Support CCHO 60gm Pertinent Medications colace, iron, glucatrol, novolog, seroquel, ambien Pertinent Labs 05/27 POC 85 05/26 POC 146 05/24 glucose 103, alb 3.4 Nutritional Hx/Data Height 1.75 m Height (Calculated Centimeters) 175.3 Current Weight (lbs) 79.832 kg Weight (Calculated Kilograms) 79.8 Weight (Calculated Grams) 64107.3 [place] Body Weight 160 Body Mass Index (BMI) 25.9 Weight Status Overweight GI Symptoms GI Symptoms None Last BM 05/26 Difficult in: None Food Allergies No Skin Integrity/Comment: michelle, violeta 21 Current %PO Good (75-100%) Estimated Nutritional Goals BEE in Kcals: Using Current wt Calories/Kcals/Kg 23-27 Kcals Calculated 4397-6253 Protein: Using Current wt Protein g/k.8-1 Protein Calculated 64-80 Fluid: ml 6359-2378 (1ml/kcal) Nutritional Problem No current Nutrition Prob Problem N/A 1. Problem Problem altered nutrition related labs Etiology hyperglycemia Signs/Symptoms: POC 85-146 Malnutrition Alert Is there a minimum of two criteria No selected? Query Text:Check all the applicable criteria. A minimum of two criteria are recommended for diagnosis of either severe or non-severe malnutrition. Malnutrition Related to Morbid Obesity Malnutrition related to morbid obesity No Intervention/Recommendation Comments 1. Continue with [facility] 60gm diet as ordered. 2. MD to monitor glucose labs. 3. Monitor PO intake, wt, labs and skin integrity 4. F/U as low risk in 7 days Expected Outcomes/Goals Expected Outcomes/Goals Goal: PO intake to meet at least 75% of nutritional needs and improved labs. Reviewed by Tiff Davila RD
--- NOTE | 2018-05-29 16:02 | Progress Notes ---
DATE: 05/29/2018 SUBJECTIVE: Staff was spoken to. The patient is interviewed. Mood is noted to be irritable. Affect is constricted. Insight and judgment at this time are noted to be still impaired. Impulse control is noted to be limited. Coping skills are also noted to be limited. The patient has been having difficult time to cope with the stress. The patient has been isolative and withdrawn today. The patient is still very paranoid and pacing most of the time. No side effects to the medications are noted. ASSESSMENT: The patient is still psychotic. PLAN: To continue the patient with the supportive therapy, encouraged the patient to verbalize the concerns rather than to act out. JOB# [id number]
[2018-05-29] MEDS: Benztropine 1 MG TAB PO SCH (20:56)
[2018-05-30] MEDS: INSULIN ASPART, RECOMBINANT 100 UNITS/ML SUBQ SCH ×3 (06:44→16:12)
[2018-05-30] MEDS: Ferrous Sulfate 325 MG TAB PO SCH (09:15)
[2018-05-30] MEDS: Thioridazine Hydrochloride 25 MG TAB PO SCH ×2 (09:16→17:14)
--- NOTE | 2018-05-30 09:49 | Internal Medicine Prog Note ---
Internal Medicine Subjective - Subjective Patient seen and examined:: with staff, chart reviewed Patient is:: awake, verbal, interactive Per staff patient has:: no adverse event, poor appetite, tolerating meds Internal Medicine Objective - Results Result Diagrams: 05/24/18 21:35 05/24/18 21:35 Recent Labs: Laboratory Last Values WBC 5.7 Th/cmm (4.8-10.8) 05/24/18 21:35 RBC 3.73 Mil/cmm (3.80-5.80) L 05/24/18 21:35 Hgb 10.5 gm/dL (12-16) L 05/24/18 21:35 Hct 32.6 % (41.0-60) L 05/24/18 21:35 MCV 87.5 fl (80-99) 05/24/18 21:35 MCH 28.1 pg (27.0-31.0) 05/24/18 21:35 MCHC Differential 32.1 pg (28.0-36.0) 05/24/18 21:35 RDW 13.1 % (11.5-20.0) 05/24/18 21:35 Plt Count 253 Th/cmm (150-400) 05/24/18 21:35 MPV 8.2 fl 05/24/18 21:35 Neutrophils % 53.9 % (40.0-80.0) 05/24/18 21:35 Lymphocytes % 36.7 % (20.0-50.0) 05/24/18 21:35 Monocytes % 6.1 % (2.0-10.0) 05/24/18 21:35 Eosinophils % 2.4 % (0.0-5.0) 05/24/18 21:35 Basophils % 0.9 % (0.0-2.0) 05/24/18 21:35 Sodium 136 mEq/L (136-145) 05/24/18 21:35 Potassium 4.5 mEq/L (3.5-5.1) 05/24/18 21:35 Chloride 106 mEq/L (98-107) 05/24/18 21:35 Carbon Dioxide 22.1 mEq/L (21.0-31.0) 05/24/18 21:35 Anion Gap 12.4 (7.0-16.0) 05/24/18 21:35 BUN 21 mg/dL (7-25) 05/24/18 21:35 Creatinine 1.3 mg/dL (0.7-1.3) 05/24/18 21:35 Est GFR ( Amer) > 60.0 ml/min (>90) 05/24/18 21:35 Est GFR (Non-Af Amer) 58.3 ml/min 05/24/18 21:35 BUN/Creatinine Ratio 16.2 05/24/18 21:35 Glucose 103 mg/dL (70-105) 05/24/18 21:35 POC Glucose 119 MG/DL (70 - 105) H 05/30/18 06:35 Calcium 9.8 mg/dL (8.6-10.3) 05/24/18 21:35 Total Bilirubin 0.3 mg/dL (0.3-1.0) 05/24/18 21:35 AST 11 U/L (13-39) L 05/24/18 21:35 ALT 9 U/L (7-52) 05/24/18 21:35 Alkaline Phosphatase 78 U/L (34-104) 05/24/18 21:35 Total Protein 6.5 gm/dL (6.0-8.3) 05/24/18 21:35 Albumin 3.4 gm/dL (4.2-5.5) L 05/24/18 21:35 Globulin 3.1 gm/dL 05/24/18 21:35 Albumin/Globulin Ratio 1.1 (1.0-1.8) 05/24/18 21:35 Triglycerides 131 mg/dL (<150) 05/24/18 21:35 Cholesterol 140 mg/dL (<200) 05/24/18 21:35 LDL Cholesterol Direct 84 mg/dL (75-193) 05/24/18 21:35 HDL Cholesterol 36 mg/dL (23-92) 05/24/18 21:35 TSH 0.10 uIU/ml (0.34-5.60) L 05/24/18 21:35 Urine Source CLEAN C 05/24/18 22:10 Urine Color YELLOW 05/24/18 22:10 Urine Clarity CLEAR (CLEAR) 05/24/18 22:10 Urine pH 7.0 (4.6 - 8.0) 05/24/18 22:10 Ur Specific [place] <= 1.005 (1.005-1.030) 05/24/18 22:10 Urine Protein NEGATIVE mg/dL (NEGATIVE) 05/24/18 22:10 Urine Glucose (UA) NEGATIVE mg/dL (NEGATIVE) 05/24/18 22:10 Urine Ketones NEGATIVE mg/dL (NEGATIVE) 05/24/18 22:10 Urine Blood NEGATIVE (NEGATIVE) 05/24/18 22:10 Urine Nitrate NEGATIVE (NEGATIVE) 05/24/18 22:10 Urine Bilirubin NEGATIVE (NEGATIVE) 05/24/18 22:10 Urine Urobilinogen 0.2 E.U./dL (0.2 - 1.0) 05/24/18 22:10 Ur Leukocyte Esterase NEGATIVE (NEGATIVE) 05/24/18 22:10 RPR NONREACTIVE (NONREACTIVE) 05/24/18 21:35 Crossmatch See Detail 05/24/18 21:35 - Physical Exam Vitals and I&O: Vital Signs Temp 98 F 05/30/18 06:03 Pulse 65 05/30/18 09:15 Resp 100 05/30/18 06:03 BP 112/69 05/30/18 09:15 Pulse Ox 97 05/29/18 20:00 Intake & Output 05/29/18 05/30/18 05/30/18 18:59 06:59 18:59 Intake Total 900 120 Balance 900 120 Intake: Oral 900 120 Other: # Voids 3 3 # Bowel Movements 1 Active Medications: Current Medications Acetaminophen (Tylenol) 650 mg PO Q4H PRN PRN Reason: Pain or Fever >101 Stop: 07/24/18 03:09 Benztropine Mesylate (Cogentin) 1 mg PO [facility] Stop: 07/24/18 20:59 Last Admin: 05/29/18 20:56 Dose: 1 mg Divalproex Sodium (Depakote Dr) 125 mg PO Q12HR [facility]; Protocol Stop: 07/25/18 20:59 Last Admin: 05/30/18 09:15 Dose: 125 mg Docusate Sodium (Colace) 100 mg PO BID [facility] Stop: 07/24/18 08:59 Last Admin: 05/30/18 09:15 Dose: 100 mg Donepezil HCl (Aricept) 5 mg PO HS [facility] Stop: 07/24/18 20:59 Last Admin: 05/29/18 20:56 Dose: 5 mg Ferrous Sulfate (Iron) 325 mg PO DAILY [facility] Stop: 07/24/18 08:59 Last Admin: 05/30/18 09:15 Dose: 325 mg Glipizide (Glucotrol) 10 mg PO BIDBRS [facility] Stop: 07/24/18 07:59 Last Admin: 05/30/18 09:15 Dose: 10 mg Insulin Aspart (Novolog) 0 units SUBQ AC [facility]; Protocol Stop: 07/24/18 07:29 Last Admin: 05/30/18 06:44 Dose: Not Given Lisinopril (Zestril) 5 mg PO DAILY [facility] Stop: 07/24/18 08:59 Last Admin: 05/30/18 09:15 Dose: 5 mg Lorazepam (Ativan) 0.5 mg PO Q4HR PRN; Protocol PRN Reason: Anxiety Stop: 06/23/18 22:44 Last Admin: 05/27/18 09:10 Dose: 0.5 mg Magnesium Hydroxide (Milk Of Magnesia) 30 ml PO HS PRN PRN Reason: Constipation Magnesium Hydroxide (Milk Of Magnesia) 30 ml PO DAILY PRN PRN Reason: Constipation Stop: 07/24/18 15:43 Mupirocin (Bactroban Oint) 1 appl NS BID [facility] Stop: 06/01/18 09:01 Last Admin: 05/30/18 09:16 Dose: 1 appl Quetiapine Fumarate (Seroquel) 50 mg PO HS [facility]; Protocol Stop: 07/27/18 20:59 Last Admin: 05/29/18 20:55 Dose: 50 mg Thioridazine HCl (Mellaril) 50 mg PO BID [facility]; Protocol Stop: 07/26/18 08:59 Last Admin: 05/30/18 09:16 Dose: 50 mg Zolpidem Tartrate (Ambien) 5 mg PO HS PRN PRN Reason: Insomnia Stop: 07/23/18 22:44 Last Admin: 05/27/18 20:46 Dose: 5 mg General: demented HEENT: NC/AT, PERRLA Neck: Supple, No JVD Lungs: CTAB Cardiovascular: RRR, Normal S1, Normal S2 Abdomen: soft, non-tender, non-distended Extremities: excoriation Neurological: no change, disorganized Internal Medicine Assmt/Plan - Assessment Assessment: ASSESSMENT AND PLAN: Anemia, diabetes, left eye blindness, dementia, hypertension, low albumin. - Plan Plan: PLAN: We will continue the patient on daily insulin sliding scale. Continue _hypoglycemic___ medication. We will monitor the patient with low na diet We will titrate antihypertensive medication. Continue with current care. Follow consult and recommendations. Nutritional Asmnt/Malnutr-PDOC - Dietary Evaluation Malnutrition Findings (Please click <Entered> for more info): Nutritional Asmnt/Malnutrition Start: 05/27/18 12: 47 Text: Status: Complete Freq: Protocol: Document 05/27/18 12:48 [email or web address] (Rec: 05/27/18 12:57 [email or web address]) Nutritional Asmnt/Malnutrition Patient General Information Nutritional Screening Moderate Risk Diagnosis psychosis nos Pertinent Medical Hx/Surgical Hx DM, left eye blindness, dementia, HTN, left eye & ear surgery Subjective Information Pt was seen sleeping in bed at time of visit. PO intake is 75-100% per EMR. Current Diet Order/ Nutrition Support CCHO 60gm Pertinent Medications colace, iron, glucatrol, novolog, seroquel, ambien Pertinent Labs 05/27 POC 85 05/26 POC 146 05/24 glucose 103, alb 3.4 Nutritional Hx/Data Height 1.75 m Height (Calculated Centimeters) 175.3 Current Weight (lbs) 79.832 kg Weight (Calculated Kilograms) 79.8 Weight (Calculated Grams) 87741.3 [place] Body Weight 160 Body Mass Index (BMI) 25.9 Weight Status Overweight GI Symptoms GI Symptoms None Last BM 05/26 Difficult in: None Food Allergies No Skin Integrity/Comment: violeta martinez 21 Current %PO Good (75-100%) Estimated Nutritional Goals BEE in Kcals: Using Current wt Calories/Kcals/Kg 23-27 Kcals Calculated 0379-8688 Protein: Using Current wt Protein g/k.8-1 Protein Calculated 64-80 Fluid: ml 8039-6976 (1ml/kcal) Nutritional Problem No current Nutrition Prob Problem N/A 1. Problem Problem altered nutrition related labs Etiology hyperglycemia Signs/Symptoms: POC 85-146 Malnutrition Alert Is there a minimum of two criteria No selected? Query Text:Check all the applicable criteria. A minimum of two criteria are recommended for diagnosis of either severe or non-severe malnutrition. Malnutrition Related to Morbid Obesity Malnutrition related to morbid obesity No Intervention/Recommendation Comments 1. Continue with [facility] 60gm diet as ordered. 2. MD to monitor glucose labs. 3. Monitor PO intake, wt, labs and skin integrity 4. F/U as low risk in 7 days Expected Outcomes/Goals Expected Outcomes/Goals Goal: PO intake to meet at least 75% of nutritional needs and improved labs. Reviewed by Tiff Davila RD
[2018-05-30] MEDS: Benztropine 1 MG TAB PO SCH (21:31)
--- NOTE | 2018-05-30 22:02 | Progress Notes ---
DATE: 05/30/2018 PSYCHIATRIC PROGRESS NOTE SUBJECTIVE: Staff was spoken to. The patient is interviewed. Mood is noted to be irritable. Affect is constricted. The patient is still laughing and giggling and has been talking to self. The patient is not making much sense. The patient has been going on a tangent. No side effects to the medications are noted at this time. ASSESSMENT: The patient is still psychotic. PLAN: To continue the patient with the supportive therapy. I encouraged the patient to verbalize the concerns rather than to act out. JOB# [id number]
--- NOTE | 2018-05-31 05:18 | Progress Notes ---
DATE: 05/28/2018 SUBJECTIVE: The patient is seen and interviewed. Case is discussed with staff. The patient appears to be irritable. The patient is having a difficult time coping with stress. The patient is isolative and withdrawn according to the staff. The patient appears to be pacing on the unit. The patient presents as confused and reports that he does not feel he needs to be in the hospital. OBJECTIVE: Mood irritable. Affect constricted. Thought processes confused. The patient denied any auditory or visual hallucinations or any suicidal ideation. It is noted the patient continues to have paranoid ideation. The patient's behavior is withdrawn, but restless and still somewhat impulsive. ASSESSMENT AND PLAN: Schizoaffective disorder, bipolar type. PLAN: We will continue with supportive psychotherapy. We will encourage the patient to verbalize his concerns versus acting out. We will encourage the patient to participate in milieu therapy. This promotion writer provided reality orientation, differentiation and integration. Remotivation was also given for the patient to become compliant and stay compliant with all aspects of his care and treatment. We reviewed coping strategies for phase of life issues as well as for chronic severe mental illness. JOB# [id number] MTDD
[2018-05-31] MEDS: INSULIN ASPART, RECOMBINANT 100 UNITS/ML SUBQ SCH ×3 (06:32→16:59)
[2018-05-31] MEDS: Ferrous Sulfate 325 MG TAB PO SCH (08:57)
[2018-05-31] MEDS: Thioridazine Hydrochloride 25 MG TAB PO SCH ×2 (08:58→17:07)
--- NOTE | 2018-05-31 16:02 | Internal Medicine Prog Note ---
Internal Medicine Subjective - Subjective Patient seen and examined:: with staff, chart reviewed Patient is:: awake, verbal, interactive Per staff patient has:: no adverse event, poor appetite, tolerating meds Internal Medicine Objective - Results Result Diagrams: 05/24/18 21:35 05/24/18 21:35 Recent Labs: Laboratory Last Values WBC 5.7 Th/cmm (4.8-10.8) 05/24/18 21:35 RBC 3.73 Mil/cmm (3.80-5.80) L 05/24/18 21:35 Hgb 10.5 gm/dL (12-16) L 05/24/18 21:35 Hct 32.6 % (41.0-60) L 05/24/18 21:35 MCV 87.5 fl (80-99) 05/24/18 21:35 MCH 28.1 pg (27.0-31.0) 05/24/18 21:35 MCHC Differential 32.1 pg (28.0-36.0) 05/24/18 21:35 RDW 13.1 % (11.5-20.0) 05/24/18 21:35 Plt Count 253 Th/cmm (150-400) 05/24/18 21:35 MPV 8.2 fl 05/24/18 21:35 Neutrophils % 53.9 % (40.0-80.0) 05/24/18 21:35 Lymphocytes % 36.7 % (20.0-50.0) 05/24/18 21:35 Monocytes % 6.1 % (2.0-10.0) 05/24/18 21:35 Eosinophils % 2.4 % (0.0-5.0) 05/24/18 21:35 Basophils % 0.9 % (0.0-2.0) 05/24/18 21:35 Sodium 136 mEq/L (136-145) 05/24/18 21:35 Potassium 4.5 mEq/L (3.5-5.1) 05/24/18 21:35 Chloride 106 mEq/L (98-107) 05/24/18 21:35 Carbon Dioxide 22.1 mEq/L (21.0-31.0) 05/24/18 21:35 Anion Gap 12.4 (7.0-16.0) 05/24/18 21:35 BUN 21 mg/dL (7-25) 05/24/18 21:35 Creatinine 1.3 mg/dL (0.7-1.3) 05/24/18 21:35 Est GFR ( Amer) > 60.0 ml/min (>90) 05/24/18 21:35 Est GFR (Non-Af Amer) 58.3 ml/min 05/24/18 21:35 BUN/Creatinine Ratio 16.2 05/24/18 21:35 Glucose 103 mg/dL (70-105) 05/24/18 21:35 POC Glucose 155 MG/DL (70 - 105) H 05/31/18 11:17 Calcium 9.8 mg/dL (8.6-10.3) 05/24/18 21:35 Total Bilirubin 0.3 mg/dL (0.3-1.0) 05/24/18 21:35 AST 11 U/L (13-39) L 05/24/18 21:35 ALT 9 U/L (7-52) 05/24/18 21:35 Alkaline Phosphatase 78 U/L (34-104) 05/24/18 21:35 Total Protein 6.5 gm/dL (6.0-8.3) 05/24/18 21:35 Albumin 3.4 gm/dL (4.2-5.5) L 05/24/18 21:35 Globulin 3.1 gm/dL 05/24/18 21:35 Albumin/Globulin Ratio 1.1 (1.0-1.8) 05/24/18 21:35 Triglycerides 131 mg/dL (<150) 05/24/18 21:35 Cholesterol 140 mg/dL (<200) 05/24/18 21:35 LDL Cholesterol Direct 84 mg/dL (75-193) 05/24/18 21:35 HDL Cholesterol 36 mg/dL (23-92) 05/24/18 21:35 TSH 0.10 uIU/ml (0.34-5.60) L 05/24/18 21:35 Urine Source CLEAN C 05/24/18 22:10 Urine Color YELLOW 05/24/18 22:10 Urine Clarity CLEAR (CLEAR) 05/24/18 22:10 Urine pH 7.0 (4.6 - 8.0) 05/24/18 22:10 Ur Specific [place] <= 1.005 (1.005-1.030) 05/24/18 22:10 Urine Protein NEGATIVE mg/dL (NEGATIVE) 05/24/18 22:10 Urine Glucose (UA) NEGATIVE mg/dL (NEGATIVE) 05/24/18 22:10 Urine Ketones NEGATIVE mg/dL (NEGATIVE) 05/24/18 22:10 Urine Blood NEGATIVE (NEGATIVE) 05/24/18 22:10 Urine Nitrate NEGATIVE (NEGATIVE) 05/24/18 22:10 Urine Bilirubin NEGATIVE (NEGATIVE) 05/24/18 22:10 Urine Urobilinogen 0.2 E.U./dL (0.2 - 1.0) 05/24/18 22:10 Ur Leukocyte Esterase NEGATIVE (NEGATIVE) 05/24/18 22:10 RPR NONREACTIVE (NONREACTIVE) 05/24/18 21:35 Crossmatch See Detail 05/24/18 21:35 - Physical Exam Vitals and I&O: Vital Signs Temp 97.8 F 05/31/18 14:00 Pulse 59 05/31/18 14:00 Resp 20 05/31/18 14:00 BP 99/53 05/31/18 14:00 Pulse Ox 96 05/31/18 14:00 Intake & Output 05/30/18 05/31/18 05/31/18 18:59 06:59 18:59 Intake Total 300 Balance 300 Intake: Oral 300 Other: # Voids 2 # Bowel Movements 0 Active Medications: Current Medications Acetaminophen (Tylenol) 650 mg PO Q4H PRN PRN Reason: Pain or Fever >101 Stop: 07/24/18 03:09 Benztropine Mesylate (Cogentin) 1 mg PO HS [facility] Stop: 07/24/18 20:59 Last Admin: 05/30/18 21:31 Dose: 1 mg Divalproex Sodium (Depakote Dr) 125 mg PO Q12HR [facility]; Protocol Stop: 07/25/18 20:59 Last Admin: 05/31/18 08:57 Dose: 125 mg Docusate Sodium (Colace) 100 mg PO BID [facility] Stop: 07/24/18 08:59 Last Admin: 05/31/18 08:56 Dose: 100 mg Donepezil HCl (Aricept) 5 mg PO HS [facility] Stop: 07/24/18 20:59 Last Admin: 05/30/18 21:31 Dose: 5 mg Ferrous Sulfate (Iron) 325 mg PO DAILY [facility] Stop: 07/24/18 08:59 Last Admin: 05/31/18 08:57 Dose: 325 mg Glipizide (Glucotrol) 10 mg PO BIDBRS [facility] Stop: 07/24/18 07:59 Last Admin: 05/31/18 08:57 Dose: 10 mg Insulin Aspart (Novolog) 0 units SUBQ AC [facility]; Protocol Stop: 07/24/18 07:29 Last Admin: 05/31/18 06:32 Dose: 2 unit Lisinopril (Zestril) 5 mg PO DAILY [facility] Stop: 07/24/18 08:59 Last Admin: 05/31/18 08:57 Dose: 5 mg Lorazepam (Ativan) 0.5 mg PO Q4HR PRN; Protocol PRN Reason: Anxiety Stop: 06/23/18 22:44 Last Admin: 05/31/18 02:57 Dose: 0.5 mg Magnesium Hydroxide (Milk Of Magnesia) 30 ml PO HS PRN PRN Reason: Constipation Magnesium Hydroxide (Milk Of Magnesia) 30 ml PO DAILY PRN PRN Reason: Constipation Stop: 07/24/18 15:43 Mupirocin (Bactroban Oint) 1 appl NS BID [facility] Stop: 06/01/18 09:01 Last Admin: 05/31/18 10:29 Dose: 1 appl Quetiapine Fumarate (Seroquel) 50 mg PO HS [facility]; Protocol Stop: 07/27/18 20:59 Last Admin: 05/30/18 21:31 Dose: 50 mg Thioridazine HCl (Mellaril) 50 mg PO BID [facility]; Protocol Stop: 07/26/18 08:59 Last Admin: 05/31/18 08:58 Dose: 50 mg Zolpidem Tartrate (Ambien) 5 mg PO HS PRN PRN Reason: Insomnia Stop: 07/23/18 22:44 Last Admin: 05/30/18 21:31 Dose: 5 mg General: demented HEENT: NC/AT, PERRLA Neck: Supple, No JVD Lungs: CTAB Cardiovascular: RRR, Normal S1, Normal S2 Abdomen: soft, non-tender, non-distended Extremities: excoriation Neurological: no change, disorganized Internal Medicine Assmt/Plan - Assessment Assessment: ASSESSMENT AND PLAN: Anemia, diabetes, left eye blindness, dementia, hypertension, low albumin. - Plan Plan: PLAN: We will continue the patient on daily insulin sliding scale. Continue _hypoglycemic___ medication. We will monitor the patient with low na diet We will titrate antihypertensive medication. Continue with current care. Follow consult and recommendations. on bactroban for mrsa nares Nutritional Asmnt/Malnutr-PDOC - Dietary Evaluation Malnutrition Findings (Please click <Entered> for more info): Nutritional Asmnt/Malnutrition Start: 05/27/18 12: 47 Text: Status: Complete Freq: Protocol: Document 05/27/18 12:48 [email or web address] (Rec: 05/27/18 12:57 [email or web address]) Nutritional Asmnt/Malnutrition Patient General Information Nutritional Screening Moderate Risk Diagnosis psychosis nos Pertinent Medical Hx/Surgical Hx DM, left eye blindness, dementia, HTN, left eye & ear surgery Subjective Information Pt was seen sleeping in bed at time of visit. PO intake is 75-100% per EMR. Current Diet Order/ Nutrition Support CCHO 60gm Pertinent Medications colace, iron, glucatrol, novolog, seroquel, ambien Pertinent Labs 05/27 POC 85 05/26 POC 146 05/24 glucose 103, alb 3.4 Nutritional Hx/Data Height 1.75 m Height (Calculated Centimeters) 175.3 Current Weight (lbs) 79.832 kg Weight (Calculated Kilograms) 79.8 Weight (Calculated Grams) 30116.3 [place] Body Weight 160 Body Mass Index (BMI) 25.9 Weight Status Overweight GI Symptoms GI Symptoms None Last BM 05/26 Difficult in: None Food Allergies No Skin Integrity/Comment: violeta martinez 21 Current %PO Good (75-100%) Estimated Nutritional Goals BEE in Kcals: Using Current wt Calories/Kcals/Kg 23-27 Kcals Calculated 4221-3318 Protein: Using Current wt Protein g/k.8-1 Protein Calculated 64-80 Fluid: ml 6151-7873 (1ml/kcal) Nutritional Problem No current Nutrition Prob Problem N/A 1. Problem Problem altered nutrition related labs Etiology hyperglycemia Signs/Symptoms: POC 85-146 Malnutrition Alert Is there a minimum of two criteria No selected? Query Text:Check all the applicable criteria. A minimum of two criteria are recommended for diagnosis of either severe or non-severe malnutrition. Malnutrition Related to Morbid Obesity Malnutrition related to morbid obesity No Intervention/Recommendation Comments 1. Continue with [facility] 60gm diet as ordered. 2. MD to monitor glucose labs. 3. Monitor PO intake, wt, labs and skin integrity 4. F/U as low risk in 7 days Expected Outcomes/Goals Expected Outcomes/Goals Goal: PO intake to meet at least 75% of nutritional needs and improved labs. Reviewed by Tiff Davila RD
[2018-05-31] MEDS: Benztropine 1 MG TAB PO SCH (20:54)
--- NOTE | 2018-06-01 02:52 | Progress Notes ---
DATE: 05/31/2018 SUBJECTIVE: Staff was spoken to. The patient is interviewed. Mood is noted to be irritable. Affect is constricted. Insight and judgment are noted to be still impaired. Impulse control is noted to be limited. Coping skills noted to be limited. The patient has been having difficult time to cope with the stress. ASSESSMENT: Continues to be paranoid. PLAN: To continue the patient with the supportive therapy and place the patient to verbalize the concerns rather than to act out. JOB# [id number]
[2018-06-01] MEDS: INSULIN ASPART, RECOMBINANT 100 UNITS/ML SUBQ SCH ×3 (06:30→16:27)
[2018-06-01] MEDS: Thioridazine Hydrochloride 25 MG TAB PO SCH ×2 (09:35→17:06)
[2018-06-01] MEDS: Ferrous Sulfate 325 MG TAB PO SCH (09:35)
--- NOTE | 2018-06-01 13:19 | Internal Medicine Prog Note ---
Internal Medicine Subjective - Subjective Service Date: 06/01/18 Patient is:: awake, verbal, interactive Per staff patient has:: no adverse event, poor appetite, tolerating meds Internal Medicine Objective - Results Result Diagrams: 05/24/18 21:35 05/24/18 21:35 Recent Labs: Laboratory Last Values WBC 5.7 Th/cmm (4.8-10.8) 05/24/18 21:35 RBC 3.73 Mil/cmm (3.80-5.80) L 05/24/18 21:35 Hgb 10.5 gm/dL (12-16) L 05/24/18 21:35 Hct 32.6 % (41.0-60) L 05/24/18 21:35 MCV 87.5 fl (80-99) 05/24/18 21:35 MCH 28.1 pg (27.0-31.0) 05/24/18 21:35 MCHC Differential 32.1 pg (28.0-36.0) 05/24/18 21:35 RDW 13.1 % (11.5-20.0) 05/24/18 21:35 Plt Count 253 Th/cmm (150-400) 05/24/18 21:35 MPV 8.2 fl 05/24/18 21:35 Neutrophils % 53.9 % (40.0-80.0) 05/24/18 21:35 Lymphocytes % 36.7 % (20.0-50.0) 05/24/18 21:35 Monocytes % 6.1 % (2.0-10.0) 05/24/18 21:35 Eosinophils % 2.4 % (0.0-5.0) 05/24/18 21:35 Basophils % 0.9 % (0.0-2.0) 05/24/18 21:35 Sodium 136 mEq/L (136-145) 05/24/18 21:35 Potassium 4.5 mEq/L (3.5-5.1) 05/24/18 21:35 Chloride 106 mEq/L (98-107) 05/24/18 21:35 Carbon Dioxide 22.1 mEq/L (21.0-31.0) 05/24/18 21:35 Anion Gap 12.4 (7.0-16.0) 05/24/18 21:35 BUN 21 mg/dL (7-25) 05/24/18 21:35 Creatinine 1.3 mg/dL (0.7-1.3) 05/24/18 21:35 Est GFR ( Amer) > 60.0 ml/min (>90) 05/24/18 21:35 Est GFR (Non-Af Amer) 58.3 ml/min 05/24/18 21:35 BUN/Creatinine Ratio 16.2 05/24/18 21:35 Glucose 103 mg/dL (70-105) 05/24/18 21:35 POC Glucose 112 MG/DL (70 - 105) H 06/01/18 06:28 Calcium 9.8 mg/dL (8.6-10.3) 05/24/18 21:35 Total Bilirubin 0.3 mg/dL (0.3-1.0) 05/24/18 21:35 AST 11 U/L (13-39) L 05/24/18 21:35 ALT 9 U/L (7-52) 05/24/18 21:35 Alkaline Phosphatase 78 U/L (34-104) 05/24/18 21:35 Total Protein 6.5 gm/dL (6.0-8.3) 05/24/18 21:35 Albumin 3.4 gm/dL (4.2-5.5) L 05/24/18 21:35 Globulin 3.1 gm/dL 05/24/18 21:35 Albumin/Globulin Ratio 1.1 (1.0-1.8) 05/24/18 21:35 Triglycerides 131 mg/dL (<150) 05/24/18 21:35 Cholesterol 140 mg/dL (<200) 05/24/18 21:35 LDL Cholesterol Direct 84 mg/dL (75-193) 05/24/18 21:35 HDL Cholesterol 36 mg/dL (23-92) 05/24/18 21:35 TSH 0.10 uIU/ml (0.34-5.60) L 05/24/18 21:35 Urine Source CLEAN C 05/24/18 22:10 Urine Color YELLOW 05/24/18 22:10 Urine Clarity CLEAR (CLEAR) 05/24/18 22:10 Urine pH 7.0 (4.6 - 8.0) 05/24/18 22:10 Ur Specific [place] <= 1.005 (1.005-1.030) 05/24/18 22:10 Urine Protein NEGATIVE mg/dL (NEGATIVE) 05/24/18 22:10 Urine Glucose (UA) NEGATIVE mg/dL (NEGATIVE) 05/24/18 22:10 Urine Ketones NEGATIVE mg/dL (NEGATIVE) 05/24/18 22:10 Urine Blood NEGATIVE (NEGATIVE) 05/24/18 22:10 Urine Nitrate NEGATIVE (NEGATIVE) 05/24/18 22:10 Urine Bilirubin NEGATIVE (NEGATIVE) 05/24/18 22:10 Urine Urobilinogen 0.2 E.U./dL (0.2 - 1.0) 05/24/18 22:10 Ur Leukocyte Esterase NEGATIVE (NEGATIVE) 05/24/18 22:10 RPR NONREACTIVE (NONREACTIVE) 05/24/18 21:35 Crossmatch See Detail 05/24/18 21:35 - Physical Exam Vitals and I&O: Vital Signs Temp 97.1 F 06/01/18 06:21 Pulse 65 06/01/18 06:21 Resp 18 06/01/18 06:21 BP 106/63 06/01/18 06:21 Pulse Ox 97 06/01/18 06:21 Intake & Output 05/31/18 06/01/18 06/01/18 18:59 06:59 18:59 Intake Total 800 240 Balance 800 240 Intake: Oral 800 240 Other: # Voids 3 1 # Bowel Movements 1 Active Medications: Current Medications Acetaminophen (Tylenol) 650 mg PO Q4H PRN PRN Reason: Pain or Fever >101 Stop: 07/24/18 03:09 Benztropine Mesylate (Cogentin) 1 mg PO HS [facility] Stop: 07/24/18 20:59 Last Admin: 05/31/18 20:54 Dose: 1 mg Divalproex Sodium (Depakote Dr) 125 mg PO Q12HR [facility]; Protocol Stop: 07/25/18 20:59 Last Admin: 06/01/18 09:35 Dose: 125 mg Docusate Sodium (Colace) 100 mg PO BID [facility] Stop: 07/24/18 08:59 Last Admin: 06/01/18 09:35 Dose: 100 mg Donepezil HCl (Aricept) 5 mg PO HS [facility] Stop: 07/24/18 20:59 Last Admin: 05/31/18 20:54 Dose: 5 mg Ferrous Sulfate (Iron) 325 mg PO DAILY [facility] Stop: 07/24/18 08:59 Last Admin: 06/01/18 09:35 Dose: 325 mg Glipizide (Glucotrol) 10 mg PO BIDBRS [facility] Stop: 07/24/18 07:59 Last Admin: 06/01/18 09:38 Dose: 10 mg Insulin Aspart (Novolog) 0 units SUBQ AC [facility]; Protocol Stop: 07/24/18 07:29 Last Admin: 06/01/18 12:09 Dose: Not Given Lisinopril (Zestril) 5 mg PO DAILY [facility] Stop: 07/24/18 08:59 Last Admin: 06/01/18 09:36 Dose: Not Given Lorazepam (Ativan) 0.5 mg PO Q4HR PRN; Protocol PRN Reason: Anxiety Stop: 06/23/18 22:44 Last Admin: 06/01/18 00:00 Dose: 0.5 mg Magnesium Hydroxide (Milk Of Magnesia) 30 ml PO HS PRN PRN Reason: Constipation Magnesium Hydroxide (Milk Of Magnesia) 30 ml PO DAILY PRN PRN Reason: Constipation Stop: 07/24/18 15:43 Quetiapine Fumarate (Seroquel) 50 mg PO HS [facility]; Protocol Stop: 07/27/18 20:59 Last Admin: 05/31/18 20:54 Dose: 50 mg Thioridazine HCl (Mellaril) 50 mg PO BID [facility]; Protocol Stop: 07/26/18 08:59 Last Admin: 06/01/18 09:35 Dose: 50 mg Zolpidem Tartrate (Ambien) 5 mg PO HS PRN PRN Reason: Insomnia Stop: 07/23/18 22:44 Last Admin: 05/31/18 20:54 Dose: 5 mg General: demented HEENT: NC/AT, PERRLA Neck: Supple, No JVD Lungs: CTAB Cardiovascular: RRR, Normal S1, Normal S2 Abdomen: soft, non-tender, non-distended Extremities: excoriation Neurological: no change, disorganized Nutritional Asmnt/Malnutr-PDOC - Dietary Evaluation Malnutrition Findings (Please click <Entered> for more info): Nutritional Asmnt/Malnutrition Start: 05/27/18 12: 47 Text: Status: Complete Freq: Protocol: Document 05/27/18 12:48 [email or web address] (Rec: 05/27/18 12:57 [email or web address]) Nutritional Asmnt/Malnutrition Patient General Information Nutritional Screening Moderate Risk Diagnosis psychosis nos Pertinent Medical Hx/Surgical Hx DM, left eye blindness, dementia, HTN, left eye & ear surgery Subjective Information Pt was seen sleeping in bed at time of visit. PO intake is 75-100% per EMR. Current Diet Order/ Nutrition Support CCHO 60gm Pertinent Medications colace, iron, glucatrol, novolog, seroquel, ambien Pertinent Labs 05/27 POC 85 05/26 POC 146 05/24 glucose 103, alb 3.4 Nutritional Hx/Data Height 5 ft 9 in Height (Calculated Centimeters) 175.3 Current Weight (lbs) 176 lb Weight (Calculated Kilograms) 79.8 Weight (Calculated Grams) 93968.3 [place] Body Weight 160 Body Mass Index (BMI) 25.9 Weight Status Overweight GI Symptoms GI Symptoms None Last BM 05/26 Difficult in: None Food Allergies No Skin Integrity/Comment: violeta martinez 21 Current %PO Good (75-100%) Estimated Nutritional Goals BEE in Kcals: Using Current wt Calories/Kcals/Kg 23-27 Kcals Calculated 5524-9164 Protein: Using Current wt Protein g/k.8-1 Protein Calculated 64-80 Fluid: ml 2029-3438 (1ml/kcal) Nutritional Problem No current Nutrition Prob Problem N/A 1. Problem Problem altered nutrition related labs Etiology hyperglycemia Signs/Symptoms: POC 85-146 Malnutrition Alert Is there a minimum of two criteria No selected? Query Text:Check all the applicable criteria. A minimum of two criteria are recommended for diagnosis of either severe or non-severe malnutrition. Malnutrition Related to Morbid Obesity Malnutrition related to morbid obesity No Intervention/Recommendation Comments 1. Continue with CCHO 60gm diet as ordered. 2. MD to monitor glucose labs. 3. Monitor PO intake, wt, labs and skin integrity 4. F/U as low risk in 7 days Expected Outcomes/Goals Expected Outcomes/Goals Goal: PO intake to meet at least 75% of nutritional needs and improved labs. Reviewed by Tiff Davila RD
[2018-06-01] MEDS: Benztropine 1 MG TAB PO SCH (20:33)
--- NOTE | 2018-06-02 00:42 | Progress Notes ---
DATE: 05/31/2018 SUBJECTIVE: The patient is seen and interviewed. Case is discussed with staff. The patient presents as irritable and easily agitated. The patient is having a difficult time coping. There is evidence the patient is experiencing paranoid ideation. Impulse control is poor. The patient was selectively mute and responded to clinical questions concretely. OBJECTIVE: Mood irritable. Affect constricted. Thought process, confused. The patient denied hallucinations. Paranoid ideation persists. The patient's behavior is difficult to redirect at times. ASSESSMENT AND PLAN: We provided with supportive psychotherapy and included reality integration. We provided remotivation for the patient to become compliant and stay compliant with all aspects of his care and treatment. We provided coping strategies for phase of life issues. JOB# [id number] MTDD
--- NOTE | 2018-06-02 02:30 | Progress Notes ---
DATE: 06/01/2018 PSYCHIATRIC PROGRESS NOTE SUBJECTIVE: Staff was spoken to. The patient is interviewed. Mood is noted to be irritable. Affect is constricted. The patient is isolative and withdrawn today. The patient has been most of the time in his room and pacing on the unit and has calmed down. The patient is still going on a tangent and has been responding to internal stimuli, but no aggressive behavior is reported. ASSESSMENT: The patient's psychosis is resolving. PLAN: To continue the patient with the supportive therapy and followup. JOB# [id number]
[2018-06-02] MEDS: INSULIN ASPART, RECOMBINANT 100 UNITS/ML SUBQ SCH ×2 (06:53→11:23)
[2018-06-02] MEDS: Ferrous Sulfate 325 MG TAB PO SCH (08:55)
[2018-06-02] MEDS ORDERED: Thioridazine Hydrochloride 25 MG TAB PO SCH ×2 (09:00→21:00)
--- NOTE | 2018-06-02 19:30 | Internal Medicine Prog Note ---
Internal Medicine Subjective - Subjective Patient seen and examined:: with staff, chart reviewed, other (seen w staff at noon time) Patient is:: awake, verbal, interactive Per staff patient has:: no adverse event, poor appetite, tolerating meds Internal Medicine Objective - Results Result Diagrams: 05/24/18 21:35 05/24/18 21:35 Recent Labs: Laboratory Last Values WBC 5.7 Th/cmm (4.8-10.8) 05/24/18 21:35 RBC 3.73 Mil/cmm (3.80-5.80) L 05/24/18 21:35 Hgb 10.5 gm/dL (12-16) L 05/24/18 21:35 Hct 32.6 % (41.0-60) L 05/24/18 21:35 MCV 87.5 fl (80-99) 05/24/18 21:35 MCH 28.1 pg (27.0-31.0) 05/24/18 21:35 MCHC Differential 32.1 pg (28.0-36.0) 05/24/18 21:35 RDW 13.1 % (11.5-20.0) 05/24/18 21:35 Plt Count 253 Th/cmm (150-400) 05/24/18 21:35 MPV 8.2 fl 05/24/18 21:35 Neutrophils % 53.9 % (40.0-80.0) 05/24/18 21:35 Lymphocytes % 36.7 % (20.0-50.0) 05/24/18 21:35 Monocytes % 6.1 % (2.0-10.0) 05/24/18 21:35 Eosinophils % 2.4 % (0.0-5.0) 05/24/18 21:35 Basophils % 0.9 % (0.0-2.0) 05/24/18 21:35 Sodium 136 mEq/L (136-145) 05/24/18 21:35 Potassium 4.5 mEq/L (3.5-5.1) 05/24/18 21:35 Chloride 106 mEq/L (98-107) 05/24/18 21:35 Carbon Dioxide 22.1 mEq/L (21.0-31.0) 05/24/18 21:35 Anion Gap 12.4 (7.0-16.0) 05/24/18 21:35 BUN 21 mg/dL (7-25) 05/24/18 21:35 Creatinine 1.3 mg/dL (0.7-1.3) 05/24/18 21:35 Est GFR ( Amer) > 60.0 ml/min (>90) 05/24/18 21:35 Est GFR (Non-Af Amer) 58.3 ml/min 05/24/18 21:35 BUN/Creatinine Ratio 16.2 05/24/18 21:35 Glucose 103 mg/dL (70-105) 05/24/18 21:35 POC Glucose 134 MG/DL (70 - 105) H 06/02/18 06:52 Calcium 9.8 mg/dL (8.6-10.3) 05/24/18 21:35 Total Bilirubin 0.3 mg/dL (0.3-1.0) 05/24/18 21:35 AST 11 U/L (13-39) L 05/24/18 21:35 ALT 9 U/L (7-52) 05/24/18 21:35 Alkaline Phosphatase 78 U/L (34-104) 05/24/18 21:35 Total Protein 6.5 gm/dL (6.0-8.3) 05/24/18 21:35 Albumin 3.4 gm/dL (4.2-5.5) L 05/24/18 21:35 Globulin 3.1 gm/dL 05/24/18 21:35 Albumin/Globulin Ratio 1.1 (1.0-1.8) 05/24/18 21:35 Triglycerides 131 mg/dL (<150) 05/24/18 21:35 Cholesterol 140 mg/dL (<200) 05/24/18 21:35 LDL Cholesterol Direct 84 mg/dL (75-193) 05/24/18 21:35 HDL Cholesterol 36 mg/dL (23-92) 05/24/18 21:35 TSH 0.10 uIU/ml (0.34-5.60) L 05/24/18 21:35 Urine Source CLEAN C 05/24/18 22:10 Urine Color YELLOW 05/24/18 22:10 Urine Clarity CLEAR (CLEAR) 05/24/18 22:10 Urine pH 7.0 (4.6 - 8.0) 05/24/18 22:10 Ur Specific [place] <= 1.005 (1.005-1.030) 05/24/18 22:10 Urine Protein NEGATIVE mg/dL (NEGATIVE) 05/24/18 22:10 Urine Glucose (UA) NEGATIVE mg/dL (NEGATIVE) 05/24/18 22:10 Urine Ketones NEGATIVE mg/dL (NEGATIVE) 05/24/18 22:10 Urine Blood NEGATIVE (NEGATIVE) 05/24/18 22:10 Urine Nitrate NEGATIVE (NEGATIVE) 05/24/18 22:10 Urine Bilirubin NEGATIVE (NEGATIVE) 05/24/18 22:10 Urine Urobilinogen 0.2 E.U./dL (0.2 - 1.0) 05/24/18 22:10 Ur Leukocyte Esterase NEGATIVE (NEGATIVE) 05/24/18 22:10 RPR NONREACTIVE (NONREACTIVE) 05/24/18 21:35 Crossmatch See Detail 05/24/18 21:35 - Physical Exam Vitals and I&O: Vital Signs Temp 97.2 F 06/02/18 14:00 Pulse 96 06/02/18 14:00 Resp 18 06/02/18 14:00 BP 117/60 06/02/18 14:00 Pulse Ox 98 06/02/18 14:00 Intake & Output 06/02/18 06/02/18 06/03/18 06:59 18:59 06:59 Intake Total 240 1200 Balance 240 1200 Intake: Oral 240 1200 Other: # Voids 3 3 # Bowel Movements 0 0 General: demented HEENT: NC/AT, PERRLA Neck: Supple, No JVD Lungs: CTAB Cardiovascular: RRR, Normal S1, Normal S2 Abdomen: soft, non-tender, non-distended Extremities: excoriation Neurological: no change, disorganized Internal Medicine Assmt/Plan - Assessment Assessment: ASSESSMENT AND PLAN: Anemia, diabetes, left eye blindness, dementia, hypertension, low albumin. - Plan Plan: PLAN: We will continue the patient on daily insulin sliding scale. Continue _hypoglycemic___ medication. We will monitor the patient with low na diet We will titrate antihypertensive medication. Continue with current care. Follow consult and recommendations. on bactroban for mrsa nares Nutritional Asmnt/Malnutr-PDOC - Dietary Evaluation Malnutrition Findings (Please click <Entered> for more info): Nutritional Asmnt/Malnutrition Start: 05/27/18 12: 47 Text: Status: Complete Freq: Protocol: Document 05/27/18 12:48 [email or web address] (Rec: 05/27/18 12:57 [email or web address]) Nutritional Asmnt/Malnutrition Patient General Information Nutritional Screening Moderate Risk Diagnosis psychosis nos Pertinent Medical Hx/Surgical Hx DM, left eye blindness, dementia, HTN, left eye & ear surgery Subjective Information Pt was seen sleeping in bed at time of visit. PO intake is 75-100% per EMR. Current Diet Order/ Nutrition Support CCHO 60gm Pertinent Medications colace, iron, glucatrol, novolog, seroquel, ambien Pertinent Labs 05/27 POC 85 05/26 POC 146 05/24 glucose 103, alb 3.4 Nutritional Hx/Data Height 1.75 m Height (Calculated Centimeters) 175.3 Current Weight (lbs) 79.832 kg Weight (Calculated Kilograms) 79.8 Weight (Calculated Grams) 79222.3 [place] Body Weight 160 Body Mass Index (BMI) 25.9 Weight Status Overweight GI Symptoms GI Symptoms None Last BM 05/26 Difficult in: None Food Allergies No Skin Integrity/Comment: michelle violeta 21 Current %PO Good (75-100%) Estimated Nutritional Goals BEE in Kcals: Using Current wt Calories/Kcals/Kg 23-27 Kcals Calculated 1231-6680 Protein: Using Current wt Protein g/k.8-1 Protein Calculated 64-80 Fluid: ml 3662-5780 (1ml/kcal) Nutritional Problem No current Nutrition Prob Problem N/A 1. Problem Problem altered nutrition related labs Etiology hyperglycemia Signs/Symptoms: POC 85-146 Malnutrition Alert Is there a minimum of two criteria No selected? Query Text:Check all the applicable criteria. A minimum of two criteria are recommended for diagnosis of either severe or non-severe malnutrition. Malnutrition Related to Morbid Obesity Malnutrition related to morbid obesity No Intervention/Recommendation Comments 1. [facility] as ordered. 2. MD to monitor glucose labs. 3. Monitor PO intake, wt, labs and skin integrity 4. F/U as low risk in 7 days Expected Outcomes/Goals Expected Outcomes/Goals Goal: PO intake to meet at least 75% of nutritional needs and improved labs. Reviewed by Tiff Davila RD
--- NOTE | 2018-06-02 20:43 | Discharge Summary ---
DATE OF DISCHARGE: 06/02/2018 IDENTIFYING DATA: The patient is a 68-year-old male, resident of a custodial facility. Information obtained by directly interviewing the patient as well as reviewing the admission papers and they are reliable. JUSTIFICATION OF HOSPITALIZATION: The patient is admitted for acute agitation and psychosis. HOSPITAL COURSE AND RESPONSE TO TREATMENT: The patient has been observed on the inpatient unit, provided with supportive psychotherapy. The patient's physical examination done and blood work done during the hospitalization have also been reviewed and the patient started to do fairly well. The patient has not been presenting with any threats to harm self or others and blood work has been reviewed by Dr. Go. The patient has been closely monitored and continued on Mellaril and low dose of Seroquel. Towards the end, the Seroquel was discontinued. The patient has been discharged on Mellaril. MENTAL STATUS EXAMINATION AT THE TIME OF DISCHARGE: The patient's mood is noted to be anxious. Affect is appropriate. Not suicidal or homicidal. Insight and judgment are noted to be fair. Impulse control is also noted to be fair. Coping skill are also noted to be fair. The patient has been not presenting with any threats to harm self or others at the time of discharge. CONDITION AT THE TIME OF DISCHARGE: Noted to be stable. DIAGNOSES AT THE TIME OF DISCHARGE: AXIS I: Schizophrenia, chronic, paranoid type. AXIS II: None. AXIS III: None. AFTERCARE PLAN: The patient is discharged to [facility] to be [facility] at [facility] by Dr. Hyatt. PROGNOSIS AT THE TIME OF DISCHARGE: Noted to be fair with the treatment. [facility]# [id number]
--- NOTE | 2018-06-03 01:30 | Progress Notes ---
DATE: 06/02/2018 SUBJECTIVE: The patient is seen and interviewed. The patient presents as irritable. The patient seems to be withdrawn. The staff reports the patient has been pacing less on the unit and has calmed down somewhat. No aggressive behavior has been reported. The patient continues to be compliant. OBJECTIVE: Mood mildly irritable. Affect constricted. Thought process markedly tangential. The patient seems to be responding to internal stimuli. The patient is responding to reality differentiation and cognitive refocusing. The patient's psychosis may be resolving. The patient's behavior seems to be withdrawn, but generally compliant. ASSESSEMENT AND PLAN: This health underwriter provided supportive therapy, which included positive reinforcement for appropriate behavior and compliance with care. We provided reality integration. We provided coping strategies for phase of life issues as well as for chronic mental illness. JOB# [id number]
== END 2018-06-02 16:10 | DRG 885 ==
LOC: ER 20:47 → GERO 22:32
DX: F25.0 Schizoaffective disorder, bipolar type (principal); D64.9 Anemia, unspecified; E11.9 Type 2 diabetes mellitus without complications; F03.90 Unspecified dementia, unspecified severity, without behavioral disturbance, psychotic disturbance, mood disturbance, and anxiety; I10 Essential (primary) hypertension; H54.62 Unqualified visual loss, left eye, normal vision right eye
CPT/HCPCS: 36415-UA; 80053-TC; 80061-TC; 81003-TC; 82948-90; 83036-90; 84443-TC; 85025-TC; 86592-TC; 86850-TC; 86900-TC; 86901-TC; 86922-TC; 93005; J1815; Z7610